=== PATIENT | female | born 1975 | race Caucasian/White ===

== ENCOUNTER 2018-06-30 16:17 | Inpatient (IN) | payer MEDICAID ==
[2018-06-30] MEDS ORDERED: Sodium Chloride 0.9% 10 ML Syringe FLUSH PRN (16:48)
[2018-06-30 17:32] LABS: ANION GAP 17.6
--- NOTE | 2018-06-30 17:39 | CR ---
Clinical history: 43-year-old female with cough and fever. Interpretation: Abnormal coarse accentuation of perihilar lung markings suggesting bronchial inflamma tion (some apparent old postinflammatory scarring and/or basilar associated with abnormality 2013). No lobar pneumonia. Normal cardiac silhouette without cephalization of vascular flow, signs of alveolar edema or dependen t pleural effusion. No lung mass or hilar lymphadenopathy. CONCLUSION: Bronchial inflammatory changes and/or mild vascular congestion. No lobar pneumonia.
[2018-06-30] MEDS ORDERED: Acetaminophen 325 MG Tab PO ONE (18:28)
--- NOTE | 2018-06-30 18:50 | EDM.PDOC ---
Scribed by Ju Martinez 06/30/18 1010 for Treva Murray NP ED HPI GENERAL MEDICAL PROBLEM - General Chief Complaint: Fever Stated Complaint: HIGH FEVER Time Seen by Provider: 06/30/18 17:07 Source of Information: Reports: Patient, RN, RN Notes Reviewed History Limitations: Reports: No Limitations - History of Present Illness INITIAL COMMENTS - FREE TEXT/NARRATIVE: Patient presents to ER with complaint of being tired with fever and chills. Patient complains of achy legs/thighs. Patient on hemodialysis Saturday, Saturday and Saturday. She ran today a full run. Not feeling well since yesterday. Patient states temperature 103.4 when off dialysis--was 99 when she got there. She has fever, chills, nausea, vomiting, diarrhea, headache and body aches. No cough, sore throat or urinary symptoms. She has chest pain and shortness of breath. She has a fistula. Onset: Gradual Duration: Getting Worse Location: Reports: Generalized Quality: Reports: Ache Severity: Moderate Improves with: Reports: None Worsens with: Reports: None Associated Symptoms: Reports: No Other Symptoms - Related Data Allergies Allergy/AdvReac Type Severity Reaction Status Date / Time codeine Allergy Hives Verified 06/30/18 16:56 Home Meds: Home Meds Bumetanide [Bumex] 2 mg PO ASDIRECTED 07/05/15 [History] Calcium Acetate [PhosLo] 667 mg PO ASDIRECTED 07/05/15 [History] Ferrous Sulfate [Iron] 325 mg PO ASDIRECTED 07/05/15 [History] Losartan Potassium [Cozaar] 100 mg PO ASDIRECTED 07/05/15 [History] Metoprolol Succinate [Toprol XL] 50 mg PO ASDIRECTED 07/05/15 [History] Sodium Bicarbonate 650 mg PO ASDIRECTED 07/05/15 [History] hydrALAZINE [Apresoline] 50 mg PO ASDIRECTED 07/05/15 [History] oxyCODONE HCl/Acetaminophen [Percocet 10-325 MG] 1 tab PO ASDIRECTED 07/05/15 [ History] Past Medical History Cardiovascular History: Reports: Hypertension Genitourinary History: Reports: Dialysis 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 ED EXAM, SEPSIS - Physical Exam Exam: See Below Exam Limited By: No Limitations General Appearance: Alert Eye Exam: Right Eye: Other (right eye cataract) Ears: Normal External Exam, Normal Canal, Hearing Grossly Normal, Normal TMs Nose: Normal Inspection, Normal Mucosa, No Blood Throat/Mouth: Normal Inspection, Normal Lips, Normal Teeth, Normal Gums, Normal Oropharynx, Normal Voice, No Airway Compromise Head: Atraumatic, Normocephalic Neck: Normal Inspection, Supple, Non-Tender, Full Range of Motion Respiratory/Chest: No Respiratory Distress, Lungs Clear, Normal Breath Sounds, No Accessory Muscle Use, Chest Non-Tender Cardiovascular: Normal Peripheral Pulses, Regular Rate, Rhythm, No Edema, No Gallop, No JVD, No Murmur, No Rub GI/Abdominal Exam: Normal Bowel Sounds, Soft, Non-Tender, No Organomegaly, No Distention, No Abnormal Bruit, No Mass, Pelvis Stable (Female) Exam: Deferred Rectal (Female) Exam: Deferred Back: Normal Inspection, Full Range of Motion, NT Extremities: Other (body aches) Neurological: Alert, Oriented, CN II-XII Intact, Normal Cognition, Normal Gait, Normal Reflexes, No Motor/Sensory Deficits Psychiatric: Normal Affect, Normal Mood Skin: Warm, Dry, Intact, Normal Color, No Rash Comments: Anterior cervical +2 and tender. Course - Vital Signs Last Recorded V/S: Last Vital Signs Temp 100.9 F H 06/30/18 16:30 Pulse 107 H 06/30/18 16:30 Resp 16 06/30/18 16:30 BP 164/72 H 06/30/18 16:30 Pulse Ox 91 L 06/30/18 16:30 - Orders/Labs/Meds Orders: Active Orders 24 hr Category Date Time Status Insert Urinary Catheter [OM.PC] Q24H Care 06/30/18 18:30 Ordered Peripheral IV Care [RC] . DIRECTED Care 06/30/18 16:49 Active Urinary Catheter Assessment [RC] ASDIRECTED Care 06/30/18 18:22 Active CULTURE BLOOD [BC] Stat Lab 06/30/18 17:00 Received CULTURE BLOOD [BC] Stat Lab 06/30/18 17:05 Received CULTURE STREP A CONFIRMATION [RM] Stat Lab 06/30/18 18:13 Results DRUG SCREEN URINE BIORAD [URCHEM] Stat Lab 06/30/18 18:08 Ordered INFLUENZA A+B AG SCREEN [RM] Stat Lab 06/30/18 18:08 Ordered STREP SCRN A RAPID W CULT CONF [RM] Stat Lab 06/30/18 18:13 Results UA W/MICROSCOPIC [URIN] Stat Lab 06/30/18 18:08 Ordered Sodium Chloride 0.9% [Saline Flush] Med 06/30/18 16:48 Active 10 ml FLUSH ASDIRECTED PRN Blood Culture x2 Reflex Set [OM.PC] Stat Oth 06/30/18 16:48 Ordered Peripheral IV Insertion Adult [OM.PC] Stat Oth 06/30/18 16:48 Ordered Medication Orders Sodium Chloride (Saline Flush) 10 ml FLUSH ASDIRECTED PRN PRN Reason: Keep Vein Open Labs: Laboratory Tests 06/30/18 06/30/18 06/30/18 Range/Units 17:00 17:00 17:00 WBC 16.9 H (5.0-10.0) 10^3/uL RBC 3.95 L (4.2-5.4) 10^6/uL Hgb 9.9 L D (12.0-16.0) g/dL Hct 33.2 L (37.0-47.0) % MCV 84.1 (80-100) fL MCH 25.1 L (27.0-34.0) pg MCHC 29.8 L (33.0-35.0) g/dL Plt Count 242 D (150-450) 10^3/uL Neut % (Auto) 91.9 H (42.2-75.2) % Lymph % (Auto) 3.0 L (20.5-50.1) % [place] % (Auto) 4.9 (2-8) % Eos % (Auto) 0.1 L (1.0-3.0) % Baso % (Auto) 0.1 (0.0-1.0) % Sodium 139 (135-145) mmol/L Potassium 3.6 (3.6-5.0) mmol/L Chloride 92 L D (101-111) mmol/L Carbon Dioxide 33.0 H D (21.0-31.0) mmol/L Anion Gap 17.6 BUN 14 (7-18) mg/dL Creatinine 3.5 H (0.6-1.3) mg/dL Est Cr Clr Drug Dosing 16.73 mL/min Estimated GFR (MDRD) 14 BUN/Creatinine Ratio 4.00 Glucose 104 (74-105) mg/dL Lactic Acid 1.2 (0.5-2.2) mmol/L Calcium 8.4 (8.4-10.2) mg/dl Total Bilirubin 1.7 H (0.2-1.0) mg/dL AST 17 (10-42) IU/L ALT 7 L (10-60) IU/L Alkaline Phosphatase 106 (42-121) IU/L Total Protein 8.4 H (6.7-8.2) g/dl Albumin 3.6 (3.2-5.5) g/dl Globulin 4.8 Albumin/Globulin Ratio 0.75 Urine Color (YELLOW) Urine Appearance (CLEAR) Urine pH (5.0-9.0) Ur Specific [place] (1.005-1.030) Urine Protein (NEGATIVE) Urine Glucose (UA) (NEGATIVE) Urine Ketones (NEGATIVE) Urine Occult Blood (NEGATIVE) Urine Nitrite (NEGATIVE) Urine Bilirubin (NEGATIVE) Urine Urobilinogen (0.2-1.0) mg/dL Ur Leukocyte Esterase (NEGATIVE) Urine RBC /HPF Urine WBC (0-5/HPF) /HPF Ur Epithelial Cells /HPF Amorphous Sediment (0/HPF) /HPF Urine Bacteria (0-FEW/HPF) /HPF Urine Mucus /LPF Urine Opiates Screen (NEGATIVE) Ur Oxycodone Screen (NEGATIVE) Urine Methadone Screen (NEGATIVE) Ur Barbiturates Screen (NEGATIVE) U Tricyclic Antidepress (NEGATIVE) Ur Phencyclidine Scrn (NEGATIVE) Ur Amphetamine Screen (NEGATIVE) U Methamphetamines Scrn (NEGATIVE) Urine MDMA Screen (NEGATIVE) U Benzodiazepines Scrn (NEGATIVE) Urine Cocaine Screen (NEGATIVE) U Marijuana (THC) Screen (NEGATIVE) 06/30/18 06/30/18 Range/Units 18:08 18:08 WBC (5.0-10.0) 10^3/uL RBC (4.2-5.4) 10^6/uL Hgb (12.0-16.0) g/dL Hct (37.0-47.0) % MCV (80-100) fL MCH (27.0-34.0) pg MCHC (33.0-35.0) g/dL Plt Count (150-450) 10^3/uL Neut % (Auto) (42.2-75.2) % Lymph % (Auto) (20.5-50.1) % [place] % (Auto) (2-8) % Eos % (Auto) (1.0-3.0) % Baso % (Auto) (0.0-1.0) % Sodium (135-145) mmol/L Potassium (3.6-5.0) mmol/L Chloride (101-111) mmol/L Carbon Dioxide (21.0-31.0) mmol/L Anion Gap BUN (7-18) mg/dL Creatinine (0.6-1.3) mg/dL Est Cr Clr Drug Dosing mL/min Estimated GFR (MDRD) BUN/Creatinine Ratio Glucose (74-105) mg/dL Lactic Acid (0.5-2.2) mmol/L Calcium (8.4-10.2) mg/dl Total Bilirubin (0.2-1.0) mg/dL AST (10-42) IU/L ALT (10-60) IU/L Alkaline Phosphatase (42-121) IU/L Total Protein (6.7-8.2) g/dl Albumin (3.2-5.5) g/dl Globulin Albumin/Globulin Ratio Urine Color Yellow (YELLOW) Urine Appearance Slightly cloudy (CLEAR) Urine pH >= 9.0 (5.0-9.0) Ur Specific [place] 1.015 (1.005-1.030) Urine Protein >=300 H (NEGATIVE) Urine Glucose (UA) 250 H (NEGATIVE) Urine Ketones 15 H (NEGATIVE) Urine Occult Blood Trace-intact H (NEGATIVE) Urine Nitrite Negative (NEGATIVE) Urine Bilirubin Small H (NEGATIVE) Urine Urobilinogen 0.2 (0.2-1.0) mg/dL Ur Leukocyte Esterase Negative (NEGATIVE) Urine RBC 5-10 H /HPF Urine WBC 0-5 (0-5/HPF) /HPF Ur Epithelial Cells Many H /HPF Amorphous Sediment Few (0/HPF) /HPF Urine Bacteria Few (0-FEW/HPF) /HPF Urine Mucus Rare /LPF Urine Opiates Screen Negative (NEGATIVE) Ur Oxycodone Screen Positive H (NEGATIVE) Urine Methadone Screen Negative (NEGATIVE) Ur Barbiturates Screen Negative (NEGATIVE) U Tricyclic Antidepress Negative (NEGATIVE) Ur Phencyclidine Scrn Negative (NEGATIVE) Ur Amphetamine Screen Negative (NEGATIVE) U Methamphetamines Scrn Negative (NEGATIVE) Urine MDMA Screen Negative (NEGATIVE) U Benzodiazepines Scrn Negative (NEGATIVE) Urine Cocaine Screen Negative (NEGATIVE) U Marijuana (THC) Screen Positive H (NEGATIVE) Rapid strep: Negative. Influenza A and B: Negative. Meds: Medications Generic Name Dose Route Start Last Admin Trade Name Freq PRN Reason Stop Dose Admin Sodium Chloride 10 ml 06/30/18 16:48 Saline Flush FLUSH ASDIRECTED PRN Keep Vein Open Discontinued Medications Generic Name Dose Route Start Last Admin Trade Name Freq PRN Reason Stop Dose Admin Acetaminophen 650 mg 06/30/18 18:28 06/30/18 18:35 Tylenol PO 06/30/18 18:29 650 mg NOW ONE Administration - Radiology Interpretation Free Text/Narrative:: Chestx-ray: Bronchial inflammatory changes and/or mild vascular congestion.No lobar pneumonia. See rad report. Departure - Departure Time of Disposition: 18:49 Disposition: Refer to Observation Condition: Fair Clinical Impression: Chronic kidney disease requiring chronic dialysis, Fever of unknown origin Elevated WBC count Qualifiers: Leukocytosis type: unspecified Qualified Code(s): D72.829 - Elevated white blood cell count, unspecified - Discharge Information *PRESCRIPTION DRUG MONITORING PROGRAM REVIEWED*: No *COPY OF PRESCRIPTION DRUG MONITORING REPORT IN PATIENT MARIBEL: No Forms: ED Department Discharge - My Orders Last 24 Hours: My Active Orders 06/30/18 16:48 Sodium Chloride 0.9% [Saline Flush] 10 ml FLUSH ASDIRECTED PRN Blood Culture x2 Reflex Set [OM.PC] Stat Peripheral IV Insertion Adult [OM.PC] Stat 06/30/18 16:49 Peripheral IV Care [RC] . DIRECTED 06/30/18 17:00 CULTURE BLOOD [BC] Stat 06/30/18 17:05 CULTURE BLOOD [BC] Stat 06/30/18 18:08 DRUG SCREEN URINE BIORAD [URCHEM] Stat INFLUENZA A+B AG SCREEN [RM] Stat UA W/MICROSCOPIC [URIN] Stat 08/20/18 18:13 CULTURE STREP A CONFIRMATION [RM] Stat STREP SCRN A RAPID W CULT CONF [RM] Stat 06/30/18 18:22 Urinary Catheter Assessment [RC] ASDIRECTED 06/30/18 18:30 Insert Urinary Catheter [OM.PC] Q24H - Assessment/Plan Last 24 Hours: My Active Orders 06/30/18 16:48 Sodium Chloride 0.9% [Saline Flush] 10 ml FLUSH ASDIRECTED PRN Blood Culture x2 Reflex Set [OM.PC] Stat Peripheral IV Insertion Adult [OM.PC] Stat 06/30/18 16:49 Peripheral IV Care [RC] . DIRECTED 06/30/18 17:00 CULTURE BLOOD [BC] Stat 06/30/18 17:05 CULTURE BLOOD [BC] Stat 06/30/18 18:08 DRUG SCREEN URINE BIORAD [URCHEM] Stat INFLUENZA A+B AG SCREEN [RM] Stat UA W/MICROSCOPIC [URIN] Stat 06/30/18 18:13 CULTURE STREP A CONFIRMATION [RM] Stat STREP SCRN A RAPID W CULT CONF [RM] Stat 06/30/18 18:22 Urinary Catheter Assessment [RC] ASDIRECTED 06/30/18 18:30 Insert Urinary Catheter [OM.PC] Q24H I have read and agree with the documentation that has been completed regarding this visit. By signing this record, I attest that the documentation was completed in my physical presence and is an accurate record of the encounter.
[2018-06-30] MEDS: Losartan 50 MG Tab PO SCH (20:57)
--- NOTE | 2018-06-30 21:41 | PCM.HP ---
H&P History of Present Illness - General Date of Service: 06/30/18 Admit Problem/Dx: Admission Diagnosis/Problem Admission Diagnosis/Problem Fever Source of Information: Patient History Limitations: Reports: No Limitations - History of Present Illness Initial Comments - Free Text/Narative: patient is a 43 year old female was admitted becuase of episodes of fever. Patient started to feel feverish and chilly since yesterday. she denies any cough, SOB nor chest pain. no sore throat, rhinorrhea nor nasal congestion. She had episodes of diarrhea two days ago and yesterday and stools were described as yellowish and "grainy" but of moderate amount, did not have bowel movement on the day of admission. No exposure to any similar contacts in the household. She had nausea yesterday. Patient took Tylenol last night. She had dialysis today in the afternoon and was noted to have fever and was advised to be seen in the local ER. Measuring Machine Operator was contacted and advised patient to be observed. Denies any rash, neck stiffness nor any skin infection. Has been having some headache, no blurred vision. right thigh and headache Pain Score (Numeric/FACES): 8 - Related Data Allergies/Adverse Reactions: Allergies Allergy/AdvReac Type Severity Reaction Status Date / Time codeine Allergy Hives Verified 06/30/18 19:34 Home Medications: Home Meds Calcium Acetate [PhosLo] 667 mg PO TIDMEALS 07/05/15 [History] Losartan Potassium [Cozaar] 100 mg PO BID 07/05/15 [History] Metoprolol Succinate [Toprol XL] 50 mg PO DAILY 07/05/15 [History] Sodium Bicarbonate 650 mg PO TIDMEALS 07/05/15 [History] hydrALAZINE [Apresoline] 50 mg PO DAILY 07/05/15 [History] oxyCODONE HCl/Acetaminophen [Percocet 10-325 MG] 5 mg PO Q4HR PRN 07/05/15 [ History] Past Medical History HEENT History: Reports: Hard of Hearing Other HEENT History: 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 Cardiovascular History: Reports: Hypertension Genitourinary History: Reports: Dialysis 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 (See Below) Other OB/BYN History: toxemia of - Infectious Disease History Infectious Disease History: Reports: Chicken Pox Social & Family History - Tobacco Use Smoking Status *Q: Current Every Day Smoker Years of Tobacco use: 3 Packs/Tins Daily: 0.5 Used Tobacco, but Quit: Yes Month/Year Tobacco Last Used: 1998 Second Hand Smoke Exposure: No - Caffeine Use Caffeine Use: Reports: None - Recreational Drug Use Recreational Drug Use: No - Living Situation & Occupation Living situation: Reports: with Family H&P Review of Systems - Review of Systems: Review Of Systems: See Below General: Reports: Fever, Chills Pulmonary: Reports: No Symptoms Cardiovascular: Reports: No Symptoms Gastrointestinal: Reports: Diarrhea (no recurrence of diarrhea today) Genitourinary: Reports: No Symptoms Musculoskeletal: Reports: No Symptoms Skin: Reports: No Symptoms Psychiatric: Reports: No Symptoms Neurological: Reports: No Symptoms Exam - Exam Exam: See Below - Vital Signs Vital Signs: Last Vital Signs Temp 100.5 F 06/30/18 19:29 Pulse 92 06/30/18 19:29 Resp 16 06/30/18 19:29 BP 123/45 L 06/30/18 20:57 Pulse Ox 94 L 06/30/18 19:29 Weight: 141 lb - Exam General: Alert, Oriented HEENT: Conjunctiva Clear Neck: Supple Lungs: Clear to Auscultation, Normal Respiratory Effort Cardiovascular: Regular Rate, Regular Rhythm GI/Abdominal Exam: Normal Bowel Sounds, Soft, Other (abdomen not tense; mild epigastric tenderness, no rebound tenderness) Back Exam: Normal Inspection Extremities: No Pedal Edema Skin: Other (signs of excoriations on both LE) Neurological: Cranial Nerves Intact Neuro Extensive - Motor, Sensory, Reflexes: Normal Gait - Patient Data Lab Results Last 24 hrs: Laboratory Results - last 24 hr 06/30/18 06/30/18 06/30/18 Range/Units 17:00 17:00 17:00 WBC 16.9 H (5.0-10.0) 10^3/uL RBC 3.95 L (4.2-5.4) 10^6/uL Hgb 9.9 L D (12.0-16.0) g/dL Hct 33.2 L (37.0-47.0) % MCV 84.1 (80-100) fL MCH 25.1 L (27.0-34.0) pg MCHC 29.8 L (33.0-35.0) g/dL Plt Count 242 D (150-450) 10^3/uL Neut % (Auto) 91.9 H (42.2-75.2) % Lymph % (Auto) 3.0 L (20.5-50.1) % [place] % (Auto) 4.9 (2-8) % Eos % (Auto) 0.1 L (1.0-3.0) % Baso % (Auto) 0.1 (0.0-1.0) % Sodium 139 (135-145) mmol/L Potassium 3.6 (3.6-5.0) mmol/L Chloride 92 L D (101-111) mmol/L Carbon Dioxide 33.0 H D (21.0-31.0) mmol/L Anion Gap 17.6 BUN 14 (7-18) mg/dL Creatinine 3.5 H (0.6-1.3) mg/dL Est Cr Clr Drug Dosing 16.73 mL/min Estimated GFR (MDRD) 14 BUN/Creatinine Ratio 4.00 Glucose 104 (74-105) mg/dL Lactic Acid 1.2 (0.5-2.2) mmol/L Calcium 8.4 (8.4-10.2) mg/dl Total Bilirubin 1.7 H (0.2-1.0) mg/dL AST 17 (10-42) IU/L ALT 7 L (10-60) IU/L Alkaline Phosphatase 106 (42-121) IU/L Total Protein 8.4 H (6.7-8.2) g/dl Albumin 3.6 (3.2-5.5) g/dl Globulin 4.8 Albumin/Globulin Ratio 0.75 Urine Color (YELLOW) Urine Appearance (CLEAR) Urine pH (5.0-9.0) Ur Specific [place] (1.005-1.030) Urine Protein (NEGATIVE) Urine Glucose (UA) (NEGATIVE) Urine Ketones (NEGATIVE) Urine Occult Blood (NEGATIVE) Urine Nitrite (NEGATIVE) Urine Bilirubin (NEGATIVE) Urine Urobilinogen (0.2-1.0) mg/dL Ur Leukocyte Esterase (NEGATIVE) Urine RBC /HPF Urine WBC (0-5/HPF) /HPF Ur Epithelial Cells /HPF Amorphous Sediment (0/HPF) /HPF Urine Bacteria (0-FEW/HPF) /HPF Urine Mucus /LPF Urine Opiates Screen (NEGATIVE) Ur Oxycodone Screen (NEGATIVE) Urine Methadone Screen (NEGATIVE) Ur Barbiturates Screen (NEGATIVE) U Tricyclic Antidepress (NEGATIVE) Ur Phencyclidine Scrn (NEGATIVE) Ur Amphetamine Screen (NEGATIVE) U Methamphetamines Scrn (NEGATIVE) Urine MDMA Screen (NEGATIVE) U Benzodiazepines Scrn (NEGATIVE) Urine Cocaine Screen (NEGATIVE) U Marijuana (THC) Screen (NEGATIVE) 06/30/18 06/30/18 Range/Units 18:08 18:08 WBC (5.0-10.0) 10^3/uL RBC (4.2-5.4) 10^6/uL Hgb (12.0-16.0) g/dL Hct (37.0-47.0) % MCV (80-100) fL MCH (27.0-34.0) pg MCHC (33.0-35.0) g/dL Plt Count (150-450) 10^3/uL Neut % (Auto) (42.2-75.2) % Lymph % (Auto) (20.5-50.1) % [place] % (Auto) (2-8) % Eos % (Auto) (1.0-3.0) % Baso % (Auto) (0.0-1.0) % Sodium (135-145) mmol/L Potassium (3.6-5.0) mmol/L Chloride (101-111) mmol/L Carbon Dioxide (21.0-31.0) mmol/L Anion Gap BUN (7-18) mg/dL Creatinine (0.6-1.3) mg/dL Est Cr Clr Drug Dosing mL/min Estimated GFR (MDRD) BUN/Creatinine Ratio Glucose (74-105) mg/dL Lactic Acid (0.5-2.2) mmol/L Calcium (8.4-10.2) mg/dl Total Bilirubin (0.2-1.0) mg/dL AST (10-42) IU/L ALT (10-60) IU/L Alkaline Phosphatase (42-121) IU/L Total Protein (6.7-8.2) g/dl Albumin (3.2-5.5) g/dl Globulin Albumin/Globulin Ratio Urine Color Yellow (YELLOW) Urine Appearance Slightly cloudy (CLEAR) Urine pH >= 9.0 (5.0-9.0) Ur Specific [place] 1.015 (1.005-1.030) Urine Protein >=300 H (NEGATIVE) Urine Glucose (UA) 250 H (NEGATIVE) Urine Ketones 15 H (NEGATIVE) Urine Occult Blood Trace-intact H (NEGATIVE) Urine Nitrite Negative (NEGATIVE) Urine Bilirubin Small H (NEGATIVE) Urine Urobilinogen 0.2 (0.2-1.0) mg/dL Ur Leukocyte Esterase Negative (NEGATIVE) Urine RBC 5-10 H /HPF Urine WBC 0-5 (0-5/HPF) /HPF Ur Epithelial Cells Many H /HPF Amorphous Sediment Few (0/HPF) /HPF Urine Bacteria Few (0-FEW/HPF) /HPF Urine Mucus Rare /LPF Urine Opiates Screen Negative (NEGATIVE) Ur Oxycodone Screen Positive H (NEGATIVE) Urine Methadone Screen Negative (NEGATIVE) Ur Barbiturates Screen Negative (NEGATIVE) U Tricyclic Antidepress Negative (NEGATIVE) Ur Phencyclidine Scrn Negative (NEGATIVE) Ur Amphetamine Screen Negative (NEGATIVE) U Methamphetamines Scrn Negative (NEGATIVE) Urine MDMA Screen Negative (NEGATIVE) U Benzodiazepines Scrn Negative (NEGATIVE) Urine Cocaine Screen Negative (NEGATIVE) U Marijuana (THC) Screen Positive H (NEGATIVE) Result Diagrams: 07/01/18 06:29 07/01/18 06:29 Hemal Results Last 24 hrs: Microbiology 06/30/18 18:08 Influenza Type A Antigen Screen - Final Nasal, Unspecified NEGATIVE INFLUENZA A VIRUS AG Influenza Type B Antigen Screen - Final NEGATIVE INFLUENZA B VIRUS AG 06/30/18 18:13 Group A Streptococcus Rapid Screen - Final Throat NEGATIVE STREP A SCREEN Problem List Initiated/Reviewed/Updated: Yes Orders Last 24hrs: Active Orders 24 hr Category Date Time Status Patient Status [ADT] Routine ADT 06/30/18 20:38 Active Height and Weight [RC] DAILY Care 06/30/18 20:38 Active Insert Urinary Catheter [OM.PC] Q24H Care 06/30/18 18:30 Ordered Oxygen Therapy [RC] PRN Care 06/30/18 20:38 Active Peripheral IV Care [RC] . DIRECTED Care 06/30/18 16:49 Active Up With Assistance [RC] ASDIRECTED Care 06/30/18 20:38 Active Urinary Catheter Assessment [RC] ASDIRECTED Care 06/30/18 18:22 Active VTE/DVT Education [RC] PER UNIT ROUTINE Care 06/30/18 20:38 Active Vital Signs [RC] Q4H Care 06/30/18 20:38 Active 2 Gram Sodium Diet [DIET] Diet 06/30/18 Breakfast Active CBC WITH AUTO DIFF [HEME] Routine Lab 07/01/18 06:00 Ordered CULTURE BLOOD [BC] Stat Lab 06/30/18 17:00 Received CULTURE BLOOD [BC] Stat Lab 06/30/18 17:05 Received CULTURE STREP A CONFIRMATION [RM] Stat Lab 06/30/18 18:13 Results DRUG SCREEN URINE BIORAD [URCHEM] Stat Lab 06/30/18 18:08 Ordered INFLUENZA A+B AG SCREEN [] Stat Lab 06/30/18 18:08 Ordered STREP SCRN A RAPID W CULT CONF [] Stat Lab 06/30/18 18:13 Results UA W/MICROSCOPIC [URIN] Stat Lab 06/30/18 18:08 Ordered Acetaminophen [Tylenol] Med 06/30/18 20:43 Active 650 mg PO Q6H PRN Calcium Acetate [PhosLo] Med 07/01/18 08:00 Pending 667 mg PO TIDMEALS Losartan [Cozaar] Med 06/30/18 21:00 Active 100 mg PO BID Metoprolol Succinate [Toprol XL] Med 07/01/18 09:00 Active 50 mg PO DAILY Sodium Bicarbonate Med 07/01/18 08:00 Active 650 mg PO TIDMEALS Sodium Chloride 0.9% [Saline Flush] Med 06/30/18 16:48 Active 10 ml FLUSH ASDIRECTED PRN hydrALAZINE [Apresoline] Med 07/01/18 09:00 Active 50 mg PO DAILY Blood Culture x2 Reflex Set [OM.PC] Stat Oth 06/30/18 16:48 Ordered Peripheral IV Insertion Adult [OM.PC] Stat Oth 06/30/18 16:48 Ordered Resuscitation Status Routine Resus Stat 06/30/18 20:38 Ordered Medication Orders Acetaminophen (Tylenol) 650 mg PO Q6H PRN PRN Reason: Fever Hydralazine HCl (Apresoline) 50 mg PO DAILY ENIO Losartan Potassium (Cozaar) 100 mg PO BID ENIO Last Admin: 06/30/18 20:57 Dose: 100 mg Metoprolol Succinate (Toprol Xl) 50 mg PO DAILY [facility] Non-Formulary Medication (Calcium Acetate [Phoslo]) 667 mg PO TIDMEALS ENIO Sodium Bicarbonate (Sodium Bicarbonate) 650 mg PO TIDMEALS ENIO Sodium Chloride (Saline Flush) 10 ml FLUSH ASDIRECTED PRN PRN Reason: Keep Vein Open Last Admin: 06/30/18 19:00 Dose: 10 ml Assessment/Plan Comment:: fever - urinalysis no signs of infection, nor does the chest xray. - we will consider doing an imaging of chest, abdomen and pelvis if continues to spike fever. - will do Tylenol every 6 hours prn for fever - limited with hydrating patient due to renal status leukocytosis. - blood cultures were drawn, await results - repeat CBC Anemia - hemoglobin stable compared to previous Hgb. 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
[2018-07-01] MEDS: Acetaminophen 325 MG Tab PO PRN ×2 (00:13→11:25)
[2018-07-01] MEDS ORDERED: Cefepime 2 GM in Sodium Chloride 0.9% 50 ML IV ONE (08:00)
[2018-07-01] MEDS ORDERED: CALCIUM ACETATE 667 MG PO SCH (08:00)
[2018-07-01] MEDS: Sodium Bicarbonate 650 MG Tab PO SCH ×2 (08:50→11:25)
[2018-07-01] MEDS: Losartan 50 MG Tab PO SCH (08:50)
[2018-07-01] MEDS ORDERED: Metoprolol Succinate 50 MG Tab.ER PO SCH (09:00)
[2018-07-01] MEDS ORDERED: hydrALAZINE 25 MG Tab PO SCH (09:00)
--- NOTE | 2018-07-01 09:28 | CT ---
Clinical history: A 43-year-old hypertensive 141 pound female hemodialysis patient with heart disease , recent episodes vomiting/diarrhea, a fever of unknown origin (101.5) and WBC 16,900. Scan technique: Volume acquisition of data from the chest, abdomen and pelvis obtained without oral o r IV contrast while patient was lying supine on the Siemens multi slice scanner [place], [place]. All data archived in the PACS system for storage, reformatting axial/sagi ttal/coronal planes and study. Interpretation: Abnormal. 1. Large volume of ascitic fluid throughout the peritoneum could reflect "dialysis" but no sign of pe ritoneal catheter. Clinical? 2. Patchy nonconsolidated lingular (CARLI) infiltrate/atelectasis left lung. No other signs of pneumoni tis, lung mass or adenopathy. 3. Borderline cardiomegaly without alveolar edema or dependent pleural effusion. 4. Diseased gallbladder i.e. multiple intraluminal calcifications (stones) and the gallbladder wall a ppears thickened or inflamed. No abnormal dilatation of the intra or extrahepatic biliary ducts. No i ntrahepatic mass lesion. Unenhanced pancreas unremarkable. 5. *Midline ventral wall (infraumbilical) defect with herniation peritoneal fat and possibly tiny "kn uckle" of small bowel.... small bowel dilatation and although no differential air-fluid levels cannot exclude early mechanical obstruction. Clinical? 6. atheromatous calcifications normal caliber aortoiliac vessels. Hypertrophic spondylosis otherwise negative thoracolumbar spine. 7. No lung mass or mediastinal lymphadenopathy. No abdominal or pelvic mass lesion or mesenteric/retr operitoneal lymph nodes. 8. Ovarian cysts. Midline uterus unremarkable. CONCLUSION: Small umbilical hernia with incarceration small bowel loop (see above). Ascites. Diseased gallbladder. Infiltrate.
[2018-07-01] MEDS ORDERED: Cefepime 2 GM in Sodium Chloride 0.9% 100 ML IV ONE (10:15)
[2018-07-01 10:40] LABS: ANION GAP 19.9
--- NOTE | 2018-07-01 12:14 | PCM.PN ---
- General Info Date of Service: 07/01/18 Subjective Update: 43-year-old female admitted last night for observation because of episodes of fever. Patient has tolerated her sandwich and her meals with no recurrence of the nausea and vomiting and no recurrence of diarrhea. Again, denies any cough or shortness of breath. Denies any abdominal pain. Has been ambulating well. Was able to get some sleep last night. Functional Status: Reports: Pain Controlled - Review of Systems General: Reports: Fever - Patient Data Vitals - Most Recent: Last Vital Signs Temp 97.7 F 07/01/18 11:21 Pulse 77 07/01/18 11:21 Resp 20 07/01/18 11:21 BP 102/33 L 07/01/18 11:21 Pulse Ox 95 07/01/18 11:21 Weight - Most Recent: 141 lb I&O - Last 24 Hours: Intake & Output 06/30/18 07/01/18 07/01/18 22:59 06:59 14:59 Intake Total 625 93 Output Total 25 Balance 600 93 Lab Results Last 24 Hours: Laboratory Results - last 24 hr 06/30/18 06/30/18 06/30/18 Range/Units 17:00 17:00 17:00 WBC 16.9 H (5.0-10.0) 10^3/uL RBC 3.95 L (4.2-5.4) 10^6/uL Hgb 9.9 L D (12.0-16.0) g/dL Hct 33.2 L (37.0-47.0) % MCV 84.1 (80-100) fL MCH 25.1 L (27.0-34.0) pg MCHC 29.8 L (33.0-35.0) g/dL Plt Count 242 D (150-450) 10^3/uL Neut % (Auto) 91.9 H (42.2-75.2) % Lymph % (Auto) 3.0 L (20.5-50.1) % [place] % (Auto) 4.9 (2-8) % Eos % (Auto) 0.1 L (1.0-3.0) % Baso % (Auto) 0.1 (0.0-1.0) % Sodium 139 (135-145) mmol/L Potassium 3.6 (3.6-5.0) mmol/L Chloride 92 L D (101-111) mmol/L Carbon Dioxide 33.0 H D (21.0-31.0) mmol/L Anion Gap 17.6 BUN 14 (7-18) mg/dL Creatinine 3.5 H (0.6-1.3) mg/dL Est Cr Clr Drug Dosing 16.73 mL/min Estimated GFR (MDRD) 14 BUN/Creatinine Ratio 4.00 Glucose 104 (74-105) mg/dL Lactic Acid 1.2 (0.5-2.2) mmol/L Calcium 8.4 (8.4-10.2) mg/dl Total Bilirubin 1.7 H (0.2-1.0) mg/dL AST 17 (10-42) IU/L ALT 7 L (10-60) IU/L Alkaline Phosphatase 106 (42-121) IU/L Total Protein 8.4 H (6.7-8.2) g/dl Albumin 3.6 (3.2-5.5) g/dl Globulin 4.8 Albumin/Globulin Ratio 0.75 Urine Color (YELLOW) Urine Appearance (CLEAR) Urine pH (5.0-9.0) Ur Specific [place] (1.005-1.030) Urine Protein (NEGATIVE) Urine Glucose (UA) (NEGATIVE) Urine Ketones (NEGATIVE) Urine Occult Blood (NEGATIVE) Urine Nitrite (NEGATIVE) Urine Bilirubin (NEGATIVE) Urine Urobilinogen (0.2-1.0) mg/dL Ur Leukocyte Esterase (NEGATIVE) Urine RBC /HPF Urine WBC (0-5/HPF) /HPF Ur Epithelial Cells /HPF Amorphous Sediment (0/HPF) /HPF Urine Bacteria (0-FEW/HPF) /HPF Urine Mucus /LPF Urine Opiates Screen (NEGATIVE) Ur Oxycodone Screen (NEGATIVE) Urine Methadone Screen (NEGATIVE) Ur Barbiturates Screen (NEGATIVE) U Tricyclic Antidepress (NEGATIVE) Ur Phencyclidine Scrn (NEGATIVE) Ur Amphetamine Screen (NEGATIVE) U Methamphetamines Scrn (NEGATIVE) Urine MDMA Screen (NEGATIVE) U Benzodiazepines Scrn (NEGATIVE) Urine Cocaine Screen (NEGATIVE) U Marijuana (THC) Screen (NEGATIVE) 06/30/18 06/30/18 07/01/18 Range/Units 18:08 18:08 06:29 WBC 15.4 H (5.0-10.0) 10^3/uL RBC 3.70 L (4.2-5.4) 10^6/uL Hgb 9.3 L (12.0-16.0) g/dL Hct 31.3 L (37.0-47.0) % MCV 84.6 (80-100) fL MCH 25.1 L (27.0-34.0) pg MCHC 29.7 L (33.0-35.0) g/dL Plt Count 192 (150-450) 10^3/uL Neut % (Auto) 89.3 H (42.2-75.2) % Lymph % (Auto) 5.1 L (20.5-50.1) % [place] % (Auto) 5.3 (2-8) % Eos % (Auto) 0.0 L (1.0-3.0) % Baso % (Auto) 0.3 (0.0-1.0) % Sodium (135-145) mmol/L Potassium (3.6-5.0) mmol/L Chloride (101-111) mmol/L Carbon Dioxide (21.0-31.0) mmol/L Anion Gap BUN (7-18) mg/dL Creatinine (0.6-1.3) mg/dL Est Cr Clr Drug Dosing mL/min Estimated GFR (MDRD) BUN/Creatinine Ratio Glucose (74-105) mg/dL Lactic Acid (0.5-2.2) mmol/L Calcium (8.4-10.2) mg/dl Total Bilirubin (0.2-1.0) mg/dL AST (10-42) IU/L ALT (10-60) IU/L Alkaline Phosphatase (42-121) IU/L Total Protein (6.7-8.2) g/dl Albumin (3.2-5.5) g/dl Globulin Albumin/Globulin Ratio Urine Color Yellow (YELLOW) Urine Appearance Slightly cloudy (CLEAR) Urine pH >= 9.0 (5.0-9.0) Ur Specific [place] 1.015 (1.005-1.030) Urine Protein >=300 H (NEGATIVE) Urine Glucose (UA) 250 H (NEGATIVE) Urine Ketones 15 H (NEGATIVE) Urine Occult Blood Trace-intact H (NEGATIVE) Urine Nitrite Negative (NEGATIVE) Urine Bilirubin Small H (NEGATIVE) Urine Urobilinogen 0.2 (0.2-1.0) mg/dL Ur Leukocyte Esterase Negative (NEGATIVE) Urine RBC 5-10 H /HPF Urine WBC 0-5 (0-5/HPF) /HPF Ur Epithelial Cells Many H /HPF Amorphous Sediment Few (0/HPF) /HPF Urine Bacteria Few (0-FEW/HPF) /HPF Urine Mucus Rare /LPF Urine Opiates Screen Negative (NEGATIVE) Ur Oxycodone Screen Positive H (NEGATIVE) Urine Methadone Screen Negative (NEGATIVE) Ur Barbiturates Screen Negative (NEGATIVE) U Tricyclic Antidepress Negative (NEGATIVE) Ur Phencyclidine Scrn Negative (NEGATIVE) Ur Amphetamine Screen Negative (NEGATIVE) U Methamphetamines Scrn Negative (NEGATIVE) Urine MDMA Screen Negative (NEGATIVE) U Benzodiazepines Scrn Negative (NEGATIVE) Urine Cocaine Screen Negative (NEGATIVE) U Marijuana (THC) Screen Positive H (NEGATIVE) 07/01/18 Range/Units 06:29 WBC (5.0-10.0) 10^3/uL RBC (4.2-5.4) 10^6/uL Hgb (12.0-16.0) g/dL Hct (37.0-47.0) % MCV (80-100) fL MCH (27.0-34.0) pg MCHC (33.0-35.0) g/dL Plt Count (150-450) 10^3/uL Neut % (Auto) (42.2-75.2) % Lymph % (Auto) (20.5-50.1) % [place] % (Auto) (2-8) % Eos % (Auto) (1.0-3.0) % Baso % (Auto) (0.0-1.0) % Sodium 129 L D (135-145) mmol/L Potassium 3.9 (3.6-5.0) mmol/L Chloride 85 L (101-111) mmol/L Carbon Dioxide 28.0 (21.0-31.0) mmol/L Anion Gap 19.9 BUN 24 H (7-18) mg/dL Creatinine 5.3 H D (0.6-1.3) mg/dL Est Cr Clr Drug Dosing 11.05 mL/min Estimated GFR (MDRD) 9 BUN/Creatinine Ratio Glucose 85 (74-105) mg/dL Lactic Acid (0.5-2.2) mmol/L Calcium 8.0 L (8.4-10.2) mg/dl Total Bilirubin (0.2-1.0) mg/dL AST (10-42) IU/L ALT (10-60) IU/L Alkaline Phosphatase (42-121) IU/L Total Protein (6.7-8.2) g/dl Albumin (3.2-5.5) g/dl Globulin Albumin/Globulin Ratio Urine Color (YELLOW) Urine Appearance (CLEAR) Urine pH (5.0-9.0) Ur Specific [place] (1.005-1.030) Urine Protein (NEGATIVE) Urine Glucose (UA) (NEGATIVE) Urine Ketones (NEGATIVE) Urine Occult Blood (NEGATIVE) Urine Nitrite (NEGATIVE) Urine Bilirubin (NEGATIVE) Urine Urobilinogen (0.2-1.0) mg/dL Ur Leukocyte Esterase (NEGATIVE) Urine RBC /HPF Urine WBC (0-5/HPF) /HPF Ur Epithelial Cells /HPF Amorphous Sediment (0/HPF) /HPF Urine Bacteria (0-FEW/HPF) /HPF Urine Mucus /LPF Urine Opiates Screen (NEGATIVE) Ur Oxycodone Screen (NEGATIVE) Urine Methadone Screen (NEGATIVE) Ur Barbiturates Screen (NEGATIVE) U Tricyclic Antidepress (NEGATIVE) Ur Phencyclidine Scrn (NEGATIVE) Ur Amphetamine Screen (NEGATIVE) U Methamphetamines Scrn (NEGATIVE) Urine MDMA Screen (NEGATIVE) U Benzodiazepines Scrn (NEGATIVE) Urine Cocaine Screen (NEGATIVE) U Marijuana (THC) Screen (NEGATIVE) Hemal Results Last 24 Hours: Microbiology 06/30/18 17:05 Aerobic Blood Culture - Preliminary Blood - Venous - Lab Draw 06/30/18 18:13 Quick Strep Confirmation Culture - Final Throat NO GROUP A STREP ISOLATED Group A Streptococcus Rapid Screen - Final NEGATIVE STREP A SCREEN 06/30/18 17:00 Aerobic Blood Culture - Preliminary Blood - Venous Anaerobic Blood Culture - Preliminary 06/30/18 18:08 Influenza Type A Antigen Screen - Final Nasal, Unspecified NEGATIVE INFLUENZA A VIRUS AG Influenza Type B Antigen Screen - Final NEGATIVE INFLUENZA B VIRUS AG Med Orders - Current: Current Medications Acetaminophen (Tylenol) 650 mg PO Q6H PRN PRN Reason: Fever Last Admin: 07/01/18 11:25 Dose: 650 mg Hydralazine HCl (Apresoline) 50 mg PO DAILY ENIO Last Admin: 07/01/18 08:49 Dose: 50 mg Losartan Potassium (Cozaar) 100 mg PO BID [facility] Last Admin: 07/01/18 08:50 Dose: 100 mg Metoprolol Succinate (Toprol Xl) 50 mg PO DAILY [facility] Last Admin: 07/01/18 08:50 Dose: 50 mg Non-Formulary Medication (Calcium Acetate [Phoslo]) 667 mg PO TIDMEALS [facility] Sodium Bicarbonate (Sodium Bicarbonate) 650 mg PO TIDMEALS [facility] Last Admin: 07/01/18 11:25 Dose: 650 mg Sodium Chloride (Saline Flush) 10 ml FLUSH ASDIRECTED PRN PRN Reason: Keep Vein Open Last Admin: 06/30/18 19:00 Dose: 10 ml Discontinued Medications Acetaminophen (Tylenol) 650 mg PO NOW ONE Stop: 06/30/18 18:29 Last Admin: 06/30/18 18:35 Dose: 650 mg Cefepime HCl 2 gm/ Sodium (Chloride) 100 mls @ 200 mls/hr IV ONETIME ONE Stop: 07/01/18 10:44 Last Admin: 07/01/18 10:20 Dose: 200 mls/hr - Problem List & Annotations (1) Bacteremia SNOMED Code(s): 5687603 Code(s): R78.81 - BACTEREMIA Status: Acute Current Visit: Yes (2) Elevated WBC count SNOMED Code(s): 848356812, 915620317 Code(s): D72.829 - ELEVATED WHITE BLOOD CELL COUNT, UNSPECIFIED Status: Acute Current Visit: No Qualifiers: Leukocytosis type: unspecified Qualified Code(s): D72.829 - Elevated white blood cell count, unspecified - Problem List Review Problem List Initiated/Reviewed/Updated: Yes - My Orders Last 24 Hours: My Active Orders 06/30/18 18:08 CULTURE URINE [RM] Routine 06/30/18 20:38 Patient Status [ADT] Routine Height and Weight [RC] DAILY Oxygen Therapy [RC] PRN Up With Assistance [RC] ASDIRECTED VTE/DVT Education [RC] PER UNIT ROUTINE Vital Signs [RC] Q4H Resuscitation Status Routine 06/30/18 20:43 Acetaminophen [Tylenol] 650 mg PO Q6H PRN 06/30/18 21:00 Losartan [Cozaar] 100 mg PO BID 07/01/18 08:00 Calcium Acetate [PhosLo] 667 mg PO TIDMEALS Sodium Bicarbonate 650 mg PO TIDMEALS 07/01/18 09:00 Metoprolol Succinate [Toprol XL] 50 mg PO DAILY hydrALAZINE [Apresoline] 50 mg PO DAILY 07/01/18 10:15 Admission Status [Patient Status] [ADT] Routine - Plan Plan:: 43-year-old female admitted because of episodes of fever and leukocytosis. Initial workup did not show any clear source of infection. CAT scan of the chest , abdomen, and pelvis showed multiple findings. This includes infiltrates in the lingula, massive ascites, disease gallbladder, questionable umbilical hernia. Eventually blood cultures grew out positive cocci in chains. She was given IV Cefipime 2 g. Given the need to continue hemodialysis and possible need for paracentesis (possible source of infection), needs to be transferred to higher level facility. Sign out was given to Dr. Oliver who accepted the patient. We will be transported by ambulance due to the fact that this is a septic patient. Plan was informed to the patient who is agreeable. Code status: full
[2018-07-01 12:15] VITALS: BP 108/49
== END 2018-07-01 12:45 | DRG 871 ==
LOC: DL.ED 16:17 → DL.MS 19:27 → UNDOADMOB 19:27 → DL.MS 20:38 → OBSVTOIN 07-01 10:15
PROVIDERS: ADMIT Internal Medicine; ATTEND Internal Medicine
DX: R50.9 Fever, unspecified (principal); N18.9 Chronic kidney disease, unspecified; A41.9 Sepsis, unspecified organism; D72.829 Elevated white blood cell count, unspecified; I12.9 Hypertensive chronic kidney disease with stage 1 through stage 4 chronic kidney disease, or unspecified chronic kidney disease; R07.9 Chest pain, unspecified; R06.02 Shortness of breath; N18.6 End stage renal disease; I12.0 Hypertensive chronic kidney disease with stage 5 chronic kidney disease or end stage renal disease; R18.8 Other ascites; K42.9 Umbilical hernia without obstruction or gangrene; K82.9 Disease of gallbladder, unspecified; D64.9 Anemia, unspecified; Z99.2 Dependence on renal dialysis; Z79.899 Other long term (current) drug therapy; Z88.8 Allergy status to other drugs, medicaments and biological substances
CPT/HCPCS: 36415 ×2; 71046; 71250; 74176; 80048; 80053; 80305; 81001; 83605; 85025 ×2; 87040 ×2; 87081; 87086; 87430; 87804 ×2; 99284; A9270 ×7; J7050; G0378; J0692

== ENCOUNTER 2019-01-21 10:34 | Emergency (ER) | payer MEDICAID, OTHER ==
[2019-01-21 11:15] VITALS: BP 183/65
--- NOTE | 2019-01-21 11:16 | EDM.PDOC ---
ED HPI GENERAL MEDICAL PROBLEM - General Chief Complaint: General Stated Complaint: DIALYSIS PATIENT THAT NEEDS TO BE SEEN Time Seen by Provider: 01/21/19 11:02 Source of Information: Reports: Patient History Limitations: Reports: No Limitations - History of Present Illness INITIAL COMMENTS - FREE TEXT/NARRATIVE: She comes emergency department today with concerns of not making her dialysis. The patient for the past 2 weeks has missed her dialysis for many different reasons to include one day she had a sore knee another day she couldn't find anyone to watch her grandkids. She tried to go to dialysis yesterday but they would not let her, she has not been evaluated for over 2 weeks. She comes emergency Department she doesn't know what else to do. Speaking with the dialysis people in [place] she was supposed to be up there yesterday to get back on track with dialysis but she did not show up. She is in the emergency department today without any complaints other than knowing that she needs dialysis. No fever no chills. No shortness of breath no cough or congestion. No weakness dizziness lightheadedness. No abdominal pain nausea vomiting. No hematuria dysuria or urinary frequency. No syncope. NO chest pain. - Related Data Allergies Allergy/AdvReac Type Severity Reaction Status Date / Time codeine Allergy Hives Verified 01/21/19 11:15 Home Meds: Home Meds Calcium Acetate [PhosLo] 4 cap PO ASDIRECTED 07/05/15 [History] Losartan Potassium [Cozaar] 100 mg PO DAILY 07/05/15 [History] Metoprolol Succinate [Toprol XL] 50 mg PO BID 07/05/15 [History] Acetaminophen [Tylenol] 650 mg PO ASDIRECTED PRN 08/29/18 [History] Bumetanide 1 mg PO DAILY 08/29/18 [History] Latanoprost/Pf [Latanoprost 0.005% Eye Drop] 1 drop EYEBOTH DAILY 08/29/18 [ History] Albuterol Sulfate [Proair Respiclick] 2 INH Q6H PRN 10/24/18 [History] Benzonatate [Tessalon Perle] 100 mg PO Q6H PRN 10/24/18 [History] Diclofenac Sodium [Voltaren 1% Gel] 100 gm TD TID 10/24/18 [History] Ondansetron [Zofran] 4 mg PO DAILY PRN 12/14/18 [History] predniSONE [Prednisone] 10 mg PO DAILY 10/24/18 [History] Past Medical History HEENT History: Reports: Cataract, Hard of Hearing Other HEENT History: 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 Cardiovascular History: Reports: Heart Failure, Hypertension Genitourinary History: Reports: Dialysis, Other (See Below) Other Genitourinary History: 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 ED EXAM, GENERAL - Physical Exam Exam: See Below Exam Limited By: No Limitations General Appearance: Alert, WD/WN, No Apparent Distress Eye Exam: Bilateral Eye: EOMI, Normal Inspection Ears: Normal External Exam Nose: Normal Inspection Throat/Mouth: Normal Inspection, Normal Oropharynx Head: Atraumatic, Normocephalic Neck: Normal Inspection, Supple, Non-Tender Respiratory/Chest: No Respiratory Distress, Lungs Clear, Normal Breath Sounds, No Accessory Muscle Use Cardiovascular: Normal Peripheral Pulses, Regular Rate, Rhythm Peripheral Pulses: 2+: Radial (L), Radial (R), Posterior Tibial (L), Posterior Tibial (R), Dorsalis Pedis (L), Dorsalis Pedis (R) GI/Abdominal: Normal Bowel Sounds, Soft, Non-Tender Back Exam: Normal Inspection Extremities: Normal Inspection, Non-Tender, Pedal Edema (scant equal bilaterally. ) Neurological: Alert, Oriented, Normal Cognition, No Motor/Sensory Deficits Psychiatric: Normal Affect, Normal Mood Skin Exam: Warm, Dry, Intact, Normal Color, No Rash EKG INTERPRETATION EKG Date: 01/21/19 Time: 11:25 Rhythm: NSR Rate (Beats/Min): 72 Chicken: Normal P-Wave: Present QRS: Normal ST-T: Normal QT: Normal Comparison: Change From Previous EKG (minimal widening of the QRS but still normal measurement. Otherwise unchanged.) Course - Vital Signs Last Recorded V/S: Last Vital Signs Temp 35.9 C 01/21/19 10:40 Pulse 70 01/21/19 10:40 Resp 18 01/21/19 10:40 BP 183/65 H 01/21/19 10:40 Pulse Ox 100 01/21/19 10:40 - Orders/Labs/Meds Orders: Active Orders 24 hr Category Date Time Status EKG 12 Lead [EKG Documentation Completion] [] URGENT Care 01/21/19 11:08 Active Peripheral IV Care [RC] . DIRECTED Care 01/21/19 11:59 Active Peripheral IV Insertion Adult [OM.PC] Stat Oth 01/21/19 11:59 Ordered Labs: Laboratory Tests 01/21/19 01/21/19 Range/Units 10:21 10:21 WBC 4.8 L (5.0-10.0) 10^3/uL RBC 4.63 (4.2-5.4) 10^6/uL Hgb 11.5 L (12.0-16.0) g/dL Hct 36.9 L (37.0-47.0) % MCV 79.7 L D (80-100) fL MCH 24.8 L (27.0-34.0) pg MCHC 31.2 L (33.0-35.0) g/dL Plt Count 163 D (150-450) 10^3/uL Neut % (Auto) 51.3 (42.2-75.2) % Lymph % (Auto) 18.7 L (20.5-50.1) % [place] % (Auto) 8.7 H (2-8) % Eos % (Auto) 20.5 H (1.0-3.0) % Baso % (Auto) 0.8 (0.0-1.0) % Sodium 132 L (135-145) mmol/L Potassium 7.2 H* D (3.6-5.0) mmol/L Chloride 92 L (101-111) mmol/L Carbon Dioxide 13.0 L D (21.0-31.0) mmol/L Anion Gap 34.2 BUN 125 H D (7-18) mg/dL Creatinine 18.9 H D (0.6-1.3) mg/dL Est Cr Clr Drug Dosing 3.10 mL/min Estimated GFR (MDRD) 2 BUN/Creatinine Ratio 6.61 Glucose 90 (74-105) mg/dL Calcium 6.8 L D (8.4-10.2) mg/dl Total Bilirubin 1.7 H (0.2-1.0) mg/dL AST 15 (10-42) IU/L ALT 6 L (10-60) IU/L Alkaline Phosphatase 108 (42-121) IU/L B-Natriuretic Peptide 2180 H (0-100) pg/ml Total Protein 8.0 (6.7-8.2) g/dl Albumin 3.3 (3.2-5.5) g/dl Globulin 4.7 Albumin/Globulin Ratio 0.70 Meds: Medications Discontinued Medications Generic Name Dose Route Start Last Admin Trade Name Michaelq PRN Reason Stop Dose Admin Calcium Gluconate 1 gm 01/21/19 12:33 01/21/19 13:11 Calcium Gluconate IVPUSH 01/21/19 12:34 1 gm ONETIME ONE Administration Dextrose/Water 50 ml 01/21/19 12:33 01/21/19 12:59 Dextrose 50% In Water IVPUSH 01/21/19 12:34 50 ml ONETIME ONE Administration Insulin Human Regular 10 unit 01/21/19 12:33 01/21/19 13:29 Humulin R IV 01/21/19 12:34 10 unit ONETIME ONE Administration Insulin Human Regular Confirm 01/21/19 12:50 01/21/19 13:05 Humulin R Administered 01/21/19 12:51 Not Given Dose 300 unit .ROUTE .STK-MED ONE Sodium Bicarbonate 50 meq 01/21/19 12:33 01/21/19 13:01 Sodium Bicarbonate 8.4% IVPUSH 01/21/19 12:34 50 meq ONETIME ONE Administration Sodium Chloride 10 ml 01/21/19 11:59 01/21/19 11:15 Saline Flush FLUSH 10 ml ASDIRECTED PRN Administration Keep Vein Open - Re-Assessments/Exams Free Text/Narrative Re-Assessment/Exam: 01/21/19 Her EKG does show minimal if any widening of the QRS. No prolonged QT. Regular P waves. Her potassium is quite elevated at 7.2. No bradycardia. Calcium gluconate sodium bicarbonate dextrose and insulin was given. I called and spoke with Dr. Valdovinos the hospitalist mercerizing range controller at [facility] in [place]. HPI ER Course findings and concerns were relayed to her. Her questions were answered no new orders and she accepted the patient in transfer. I did spend an extended period of time visiting with the patient the importance of making her dialysis. Her potassium is life-threatening and can be completely prevented with regular dialysis. The patient was comfortable with the plan. Departure - Departure Time of Disposition: 14:00 Disposition: DC/Tfer to [facility] 02 Clinical Impression: Hyperkalemia, Chronic kidney disease requiring chronic dialysis - Discharge Information Referrals: PCP,Unobtain [Primary Care Provider] - Forms: ED Department Discharge - My Orders Last 24 Hours: My Active Orders 01/21/19 11:08 EKG 12 Lead [EKG Documentation Completion] [RC] URGENT 01/21/19 11:59 Peripheral IV Care [RC] . DIRECTED Peripheral IV Insertion Adult [OM.PC] Stat - Assessment/Plan Last 24 Hours: My Active Orders 01/21/19 11:08 EKG 12 Lead [EKG Documentation Completion] [RC] URGENT 01/21/19 11:59 Peripheral IV Care [RC] . DIRECTED Peripheral IV Insertion Adult [OM.PC] Stat Assessment:: Hyperkalemia CRF on dialysis None compliance with medical regimen. Plan: Transfer to [facility] for further care and evaluation.
[2019-01-21] MEDS ORDERED: Sodium Chloride 0.9% 10 ML Syringe FLUSH PRN (11:59)
[2019-01-21 12:17] LABS: ANION GAP 34.2
[2019-01-21] MEDS ORDERED: 50% Dextrose in Water 50 ML Syringe IVPUSH ONE (12:33)
[2019-01-21] MEDS ORDERED: Sodium Bicarbonate 8.4% 50 MEQ/50 ML Syringe IVPUSH ONE (12:33)
[2019-01-21] MEDS ORDERED: Insulin Regular, Human 100 Units/ML 3 ML Vial IV ONE (12:33)
[2019-01-21] MEDS ORDERED: Calcium Gluconate 10% 1 GM/10 ML SDV IVPUSH ONE (12:33)
[2019-01-21] MEDS ORDERED: Insulin Regular, Human 100 Units/ML 3 ML Vial ONE (12:50)
== END 2019-01-21 15:05 ==
LOC: DL.ED 10:34
DX: I13.2 Hypertensive heart and chronic kidney disease with heart failure and with stage 5 chronic kidney disease, or end stage renal disease (principal); I50.9 Heart failure, unspecified; N18.6 End stage renal disease; Z99.2 Dependence on renal dialysis; Z88.5 Allergy status to narcotic agent; Z79.899 Other long term (current) drug therapy; E87.5 Hyperkalemia
CPT/HCPCS: 36415; 80053; 83880; 85025; 93005; 96374; 96375; 99285; J0610; J1815; J7060

== ENCOUNTER 2019-03-04 06:30 | Emergency (ER) | payer MEDICAID, MEDICARE ==
[2019-03-04 06:39] VITALS: BP 196/75
[2019-03-04] MEDS: fentaNYL 100 MCG/2 ML SDV IVPUSH ONE ×2 (07:11→08:24)
[2019-03-04] MEDS: Oxymetazoline 0.05% Nasal Spray 15 ML Bottle ONE (07:14)
[2019-03-04 07:41] LABS: ANION GAP 25.8
--- NOTE | 2019-03-04 07:51 | EDM.PDOC ---
<Carla Johnston Garcia - Last Filed: 03/04/19 07:54> ED HPI GENERAL MEDICAL PROBLEM - General Chief Complaint: ENT Problem Stated Complaint: AMBULANCE-UNKNOWN Time Seen by Provider: 03/04/19 06:35 Source of Information: Reports: Patient, EMS History Limitations: Reports: No Limitations - History of Present Illness INITIAL COMMENTS - FREE TEXT/NARRATIVE: Dental extraction yesterday at 10am at [facility] for toothache. Denies any "abcess" Reports bleeding from area since has been applying pressure to area. Stated contacted Tooth/Teeth Pain Score (Numeric/FACES): 8 - Related Data Allergies Allergy/AdvReac Type Severity Reaction Status Date / Time codeine Allergy Hives Verified 01/21/19 11:15 Home Meds: Home Meds Calcium Acetate [PhosLo] 4 cap PO ASDIRECTED 07/05/15 [History] Losartan Potassium [Cozaar] 100 mg PO DAILY 07/05/15 [History] Metoprolol Succinate [Toprol XL] 50 mg PO BID 07/05/15 [History] Acetaminophen [Tylenol] 650 mg PO ASDIRECTED PRN 08/29/18 [History] Bumetanide 1 mg PO DAILY 08/29/18 [History] Latanoprost/Pf [Latanoprost 0.005% Eye Drop] 1 drop EYEBOTH DAILY 08/29/18 [ History] Albuterol Sulfate [Proair Respiclick] 2 INH Q6H PRN 10/24/18 [History] Benzonatate [Tessalon Perle] 100 mg PO Q6H PRN 10/24/18 [History] Diclofenac Sodium [Voltaren 1% Gel] 100 gm TD TID 10/24/18 [History] Ondansetron [Zofran] 4 mg PO DAILY PRN 10/24/18 [History] predniSONE [Prednisone] 10 mg PO DAILY 10/24/18 [History] Past Medical History HEENT History: Reports: Cataract, Hard of Hearing Other HEENT History: 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 Cardiovascular History: Reports: Heart Failure, Hypertension Genitourinary History: Reports: Dialysis, Other (See Below) Other Genitourinary History: 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 ED EXAM, ENT - Physical Exam Exam: See Below Exam Limited By: No Limitations General Appearance: Alert, Moderate Distress. No: Anxious Ears: Normal External Exam, Hearing Grossly Normal Nose: Normal Inspection Mouth/Throat: Bleeding (right upper posterior molar area, active bleeding. Pooling when flat, frequent spitting around gauze packing. ). No: Normal Teeth Head: Atraumatic, Normocephalic Neck: Normal Inspection Respiratory/Chest: No Respiratory Distress, Lungs Clear Cardiovascular: Regular Rate, Rhythm Neurological: Alert, Oriented, Normal Cognition Psychiatric: Normal Affect, Normal Mood Skin: Jaundice (alight ) Course - Vital Signs Last Recorded V/S: Last Vital Signs Temp 36.5 C 03/04/19 06:35 Pulse 102 H 03/04/19 06:35 Resp 20 03/04/19 06:35 BP 196/75 H 03/04/19 06:35 Pulse Ox 100 03/04/19 06:35 - Orders/Labs/Meds Orders: Active Orders 24 hr Category Date Time Status PACKED CELLS [RED BLOOD CELLS LP] [BBK] Stat Lab 03/04/19 07:09 Results TYPE AND SCREEN [BBK] Stat Lab 03/04/19 07:09 Results Transfuse Red Blood Cells [COMM] Stat Oth 03/04/19 08:01 Ordered Labs: Laboratory Tests 03/04/19 03/04/19 03/04/19 Range/Units 07:09 07:09 07:09 WBC 6.7 (5.0-10.0) 10^3/uL RBC 3.43 L (4.2-5.4) 10^6/uL Hgb 8.9 L D (12.0-16.0) g/dL Hct 30.0 L (37.0-47.0) % MCV 87.5 D (80-100) fL MCH 25.9 L (27.0-34.0) pg MCHC 29.7 L (33.0-35.0) g/dL Plt Count 280 D (150-450) 10^3/uL Neut % (Auto) 69.6 (42.2-75.2) % Lymph % (Auto) 15.1 L (20.5-50.1) % Grainger % (Auto) 8.5 H (2-8) % Eos % (Auto) 5.2 H (1.0-3.0) % Baso % (Auto) 1.6 H (0.0-1.0) % PT 12.4 H D (9.0-12.0) SEC INR 1.3 H (0.9-1.2) Sodium 134 L (135-145) mmol/L Potassium 5.8 H (3.6-5.0) mmol/L Chloride 89 L (101-111) mmol/L Carbon Dioxide 25.0 D (21.0-31.0) mmol/L Anion Gap 25.8 BUN 49 H D (7-18) mg/dL Creatinine 7.3 H D (0.6-1.3) mg/dL Est Cr Clr Drug Dosing 8.02 mL/min Estimated GFR (MDRD) 6 BUN/Creatinine Ratio 6.71 Glucose 91 (74-105) mg/dL Calcium 7.8 L (8.4-10.2) mg/dl Total Bilirubin 1.0 (0.2-1.0) mg/dL AST 23 (10-42) IU/L ALT 12 (10-60) IU/L Alkaline Phosphatase 87 (42-121) IU/L Total Protein 7.7 (6.7-8.2) g/dl Albumin 2.9 L (3.2-5.5) g/dl Globulin 4.8 Albumin/Globulin Ratio 0.60 Blood Type Gel Antibody Screen Crossmatch 03/04/19 Range/Units 07:09 WBC (5.0-10.0) 10^3/uL RBC (4.2-5.4) 10^6/uL Hgb (12.0-16.0) g/dL Hct (37.0-47.0) % MCV (80-100) fL MCH (27.0-34.0) pg MCHC (33.0-35.0) g/dL Plt Count (150-450) 10^3/uL Neut % (Auto) (42.2-75.2) % Lymph % (Auto) (20.5-50.1) % Grainger % (Auto) (2-8) % Eos % (Auto) (1.0-3.0) % Baso % (Auto) (0.0-1.0) % PT (9.0-12.0) SEC INR (0.9-1.2) Sodium (135-145) mmol/L Potassium (3.6-5.0) mmol/L Chloride (101-111) mmol/L Carbon Dioxide (21.0-31.0) mmol/L Anion Gap BUN (7-18) mg/dL Creatinine (0.6-1.3) mg/dL Est Cr Clr Drug Dosing mL/min Estimated GFR (MDRD) BUN/Creatinine Ratio Glucose (74-105) mg/dL Calcium (8.4-10.2) mg/dl Total Bilirubin (0.2-1.0) mg/dL AST (10-42) IU/L ALT (10-60) IU/L Alkaline Phosphatase (42-121) IU/L Total Protein (6.7-8.2) g/dl Albumin (3.2-5.5) g/dl Globulin Albumin/Globulin Ratio Blood Type O POSITIVE Gel Antibody Screen Negative Crossmatch See Detail Meds: Medications Discontinued Medications Generic Name Dose Route Start Last Admin Trade Name Freq PRN Reason Stop Dose Admin Fentanyl 25 mcg 03/04/19 06:49 03/04/19 07:11 Sublimaze IVPUSH 03/04/19 06:50 25 mcg ONETIME ONE Administration Fentanyl 25 mcg 03/04/19 08:19 03/04/19 08:24 Sublimaze IVPUSH 03/04/19 08:20 25 mcg ONETIME ONE Administration Oxymetazoline HCl 1 ml 03/04/19 07:05 03/04/19 07:14 Afrin Original 0.05% Nasal [place] .XX 03/04/19 07:06 1 ml ONETIME ONE Administration - Re-Assessments/Exams Free Text/Narrative Re-Assessment/Exam: 03/04/19 08:20 attempt with pressure of gauze unsuccessful. Continued bleeding. TC consult Dr Kaushik Alicea oral surgery, recommendation for Afrin, surgicell or tea bad,. Mild improvement with afrin, Unsustainned. Recurrent active bleeding. Attempting to find provider to manage ongoing oral bleeding as dentist at [facility] unavailable today. Surgicell shan. Patient compliant attempting to maintain pressure, Uncomfortable rating pain 8/10. RBC x 1 unit pending . Trnsfer care to [facility] with shift change Departure - Departure Disposition: DC/Tfer to [facility] 02 Clinical Impression: Surgical wound hemorrhage after dental procedure - Discharge Information Forms: Interfacility Transfer EMTALA Care Plan Goals: Discussed the patient's history, examination and attempted treatments with [facility]. [facility] relayed the messages to Dr. Flores in the ED. Dr. Flores accepted the patient for continued evaluation and further management. The patient will be transported by [facility]. <Blaine Dempsey M - Last Filed: 03/04/19 08:57> Course - Re-Assessments/Exams Free Text/Narrative Re-Assessment/Exam: 03/04/19 08:53 Patient care was taken over at shift change. After numerous calls from previous provider, a conversation was had with Dr. Messer ([place] [facility]). Dr. Messer advised to have the patient transferred to the [facility] ED for continued evaluation and management. The patient was accepted by Dr. Flores through the [facility] ED. Departure - Departure Time of Disposition: 08:55 Condition: Fair - Discharge Information *PRESCRIPTION DRUG MONITORING PROGRAM REVIEWED*: Not Applicable *COPY OF PRESCRIPTION DRUG MONITORING REPORT IN PATIENT MARIBEL: Not Applicable
== END 2019-03-04 09:23 ==
LOC: DL.ED 06:30
DX: K91.840 Postprocedural hemorrhage of a digestive system organ or structure following a digestive system procedure (principal); I11.0 Hypertensive heart disease with heart failure; I50.9 Heart failure, unspecified; Z88.5 Allergy status to narcotic agent; Z79.899 Other long term (current) drug therapy
CPT/HCPCS: 36415; 80053; 85025; 85610; 86850; 86900; 86901; 86920; 86922; 96374; 96376; 99284; A9270; J3010

== ENCOUNTER 2019-07-10 09:40 | Emergency (ER) | payer MEDICARE, MEDICAID ==
[2019-07-10 09:47] VITALS: BP 127/60
--- NOTE | 2019-07-10 09:52 | EDM.PDOC ---
ED HPI GENERAL MEDICAL PROBLEM - General Chief Complaint: Upper Extremity Injury/Pain Stated Complaint: FELL, SHOULDER INJURY AND STIFF ARM Time Seen by Provider: 07/10/19 09:50 Source of Information: Reports: Patient, Old Records, RN, RN Notes Reviewed History Limitations: Reports: No Limitations - History of Present Illness INITIAL COMMENTS - FREE TEXT/NARRATIVE: Pt presents to ER from home by POV with c/o of right shoulder pain sustained this morning from a ground level fall when she tripped walking up some stairs. Pt states she landed on the shoulder and now cannot move it, however she is moving it as she describes the injury. Denies head injury, neck pain, or any other injury. Onset: Today Duration: Constant Location: Reports: Upper Extremity, Right Quality: Reports: Ache Severity: Severe Improves with: Reports: Immobilization Worsens with: Reports: Movement Associated Symptoms: Reports: No Other Symptoms Right Shoulder Pain Score (Numeric/FACES): 10 - Related Data Allergies Allergy/AdvReac Type Severity Reaction Status Date / Time codeine Allergy Hives Verified 01/21/19 11:15 Home Meds: Home Meds Calcium Acetate [PhosLo] 4 cap PO ASDIRECTED 07/05/15 [History] Losartan Potassium [Cozaar] 100 mg PO DAILY 07/05/15 [History] Metoprolol Succinate [Toprol XL] 50 mg PO BID 07/05/15 [History] Acetaminophen [Tylenol] 650 mg PO ASDIRECTED PRN 08/29/18 [History] Bumetanide 1 mg PO DAILY 08/29/18 [History] Latanoprost/Pf [Latanoprost 0.005% Eye Drop] 1 drop EYEBOTH DAILY 08/29/18 [ History] Albuterol Sulfate [Proair Respiclick] 2 INH Q6H PRN 10/24/18 [History] Benzonatate [Tessalon Perle] 100 mg PO Q6H PRN 10/24/18 [History] Diclofenac Sodium [Voltaren 1% Gel] 100 gm TD TID 10/24/18 [History] Ondansetron [Zofran] 4 mg PO DAILY PRN 10/24/18 [History] predniSONE [Prednisone] 10 mg PO DAILY 10/24/18 [History] Past Medical History HEENT History: Reports: Cataract, Hard of Hearing Other HEENT History: 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 Cardiovascular History: Reports: Heart Failure, Hypertension Genitourinary History: Reports: Dialysis, Other (See Below) Other Genitourinary History: 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 ASSISTANT MANAGER History: Reports: , Other (See Below) Other HOTEL ASSISTANT MANAGER History: toxemia of - Infectious Disease History Infectious Disease History: Reports: Chicken Pox - Past Surgical History HEENT Surgical History: Reports: Cataract Surgery GI Surgical History: Reports: Cholecystectomy Social & Family History - Family History Family Medical History: Noncontributory - Caffeine Use Caffeine Use: Reports: Soda, Tea - Living Situation & Occupation Living situation: Reports: with Family Review of Systems - Review of Systems Review Of Systems: ROS reveals no pertinent complaints other than HPI. ED EXAM, GENERAL - Physical Exam Exam: See Below Exam Limited By: No Limitations General Appearance: Alert, No Apparent Distress, Other (Chronically ill appearing) Ears: Normal External Exam Nose: Normal Inspection Throat/Mouth: Normal Inspection, Normal Voice, No Airway Compromise Head: Atraumatic, Normocephalic Neck: Normal Inspection, Supple, Non-Tender, Full Range of Motion Respiratory/Chest: No Respiratory Distress, Lungs Clear, No Accessory Muscle Use , Chest Non-Tender Cardiovascular: Normal Peripheral Pulses, Regular Rate, Rhythm Back Exam: Normal Inspection Extremities: Normal Capillary Refill, Arm Pain (Right shoulder with bruising, no visible deformity. Pain focal to Rt clavicle.), Limited Range of Motion ( Right shoulder), Other (AV fistula at Rt arm). No: Joint Swelling, Increased Warmth, Redness Neurological: Alert, Oriented, No Motor/Sensory Deficits Psychiatric: Normal Mood Skin Exam: Warm, Dry, Intact Course - Vital Signs Last Recorded V/S: Last Vital Signs Temp 97.4 F 07/10/19 09:46 Pulse 81 07/10/19 09:46 Resp 16 07/10/19 09:46 BP 127/60 07/10/19 09:46 Pulse Ox 100 07/10/19 09:46 - Orders/Labs/Meds Orders: Active Orders 24 hr Category Date Time Status Shoulder Comp Rt [CR] Urgent Exams 07/10/19 09:52 Taken DME for Discharge [COMM] Routine Oth 07/10/19 10:08 Ordered Meds: Medications Discontinued Medications Generic Name Dose Route Start Last Admin Trade Name Freq PRN Reason Stop Dose Admin Hydromorphone HCl 1 mg 07/10/19 10:08 Dilaudid IM 07/10/19 10:09 ONETIME ONE Departure - Departure Time of Disposition: 10:11 Disposition: Home, Self-Care 01 Condition: Good Clinical Impression: Closed fracture of right clavicle Qualifiers: Encounter type: initial encounter Clavicle location: lateral end Fracture alignment: displaced Qualified Code(s): S42.031A - Displaced fracture of lateral end of right clavicle, initial encounter for closed fracture - Discharge Information *PRESCRIPTION DRUG MONITORING PROGRAM REVIEWED*: No *COPY OF PRESCRIPTION DRUG MONITORING REPORT IN PATIENT MARIBEL: No Instructions: Clavicle Fracture, [id number] Forms: ED Department Discharge Additional Instructions: Rx: [place] (Hydrocodone APAP) 5mg/325mg *Do not drive or consume alcohol while under the influence of this medication. Wear right shoulder sling (remove to sleep and to shower). Call [phone] today to schedule an appointment with [facility] for clavicle fracture evaluation. Follow up in clinic with your primary doctor if any further pain management is needed. - My Orders Last 24 Hours: My Active Orders 07/10/19 09:52 Shoulder Comp Rt [CR] Urgent 07/10/19 10:08 DME for Discharge [COMM] Routine - Assessment/Plan Last 24 Hours: My Active Orders 07/10/19 09:52 Shoulder Comp Rt [CR] Urgent 07/10/19 10:08 DME for Discharge [COMM] Routine
[2019-07-10] MEDS ORDERED: HYDROmorphone 1 MG/ML Syringe IM ONE (10:08)
== END 2019-07-10 10:24 | disposition home or self-care (01) ==
LOC: DL.ED 09:40
DX: S42.031A Displaced fracture of lateral end of right clavicle, initial encounter for closed fracture (principal); I11.0 Hypertensive heart disease with heart failure; I50.9 Heart failure, unspecified; Z88.5 Allergy status to narcotic agent; Z79.899 Other long term (current) drug therapy; Z99.2 Dependence on renal dialysis; W10.9XXA Fall (on) (from) unspecified stairs and steps, initial encounter
CPT/HCPCS: 73030-RT; 96372; 99283-25; J1170

== ENCOUNTER 2019-09-01 19:06 | Emergency (ER) | payer MEDICARE, MEDICAID ==
[2019-09-01 19:16] VITALS: BP 133/46; PULSE 88
[2019-09-01] MEDS: Sodium Chloride 0.9% 10 ML Syringe FLUSH PRN (19:38)
[2019-09-01 19:44] LABS: ANION GAP 27.9
[2019-09-01] MEDS: Ondansetron 4 MG/2 ML SDV IV ONE (20:01)
[2019-09-01] MEDS: Dicyclomine 20 MG/2 ML SDV IM ONE (20:03)
--- NOTE | 2019-09-01 20:53 | EDM.PDOC ---
ED HPI GENERAL MEDICAL PROBLEM - General Chief Complaint: Abdominal Pain Stated Complaint: AMBULANCE Time Seen by Provider: 09/01/19 19:22 Source of Information: Reports: Patient, RN, RN Notes Reviewed History Limitations: Reports: No Limitations - History of Present Illness INITIAL COMMENTS - FREE TEXT/NARRATIVE: 44 year female with a significant PMH who presents to the ER with complaints of abdominal pain 3 days. She reports bloody stools and diarrhea. She states she missed dialysis because of abdominal pain and weakness. She also reports nausea and vomited once at home. Denies any fever or chills or recent travel. patient was recently diagnosed with GIRARD and has been tapped a couple of times for ascites. Lower Abdomen Pain Score (Numeric/FACES): 10 - Related Data Allergies Allergy/AdvReac Type Severity Reaction Status Date / Time codeine Allergy Hives Verified 09/01/19 19:17 Home Meds: Home Meds Calcium Acetate [PhosLo] 4 cap PO ASDIRECTED 07/05/15 [History] Losartan Potassium [Cozaar] 100 mg PO DAILY 07/05/15 [History] Metoprolol Succinate [Toprol XL] 50 mg PO BID 07/05/15 [History] Acetaminophen [Tylenol] 650 mg PO ASDIRECTED PRN 08/29/18 [History] Past Medical History HEENT History: Reports: Cataract, Hard of Hearing Other HEENT History: 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 Cardiovascular History: Reports: Heart Failure, Hypertension Respiratory History: Reports: None Gastrointestinal History: Reports: Cholelithiasis Genitourinary History: Reports: Dialysis, Other (See Below) Other Genitourinary History: 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 WARE CARRIER History: Reports: , Other (See Below) Other WARE CARRIER History: toxemia of Musculoskeletal History: Reports: None Neurological History: Reports: None Psychiatric History: Reports: None Endocrine/Metabolic History: Reports: None Hematologic History: Reports: None Immunologic History: Reports: None Oncologic (Cancer) History: Reports: None Dermatologic History: Reports: None - Infectious Disease History Infectious Disease History: Reports: Chicken Pox - Past Surgical History HEENT Surgical History: Reports: Cataract Surgery GI Surgical History: Reports: Cholecystectomy Social & Family History - Family History Family Medical History: Noncontributory Endocrine/Metabolic: Reports: None - Tobacco Use Smoking Status *Q: Never Smoker Second Hand Smoke Exposure: No - Caffeine Use Caffeine Use: Reports: Soda, Tea - Recreational Drug Use Recreational Drug Use: No - Living Situation & Occupation Living situation: Reports: with Family ED ROS GENERAL - Review of Systems Review Of Systems: See Below Constitutional: Reports: Malaise, Decreased Appetite HEENT: Reports: No Symptoms Respiratory: Reports: No Symptoms, Shortness of Breath (due to abdominal pain) Cardiovascular: Reports: No Symptoms Endocrine: Reports: No Symptoms GI/Abdominal: Reports: Abdominal Pain, Bloody Stool (no bloody stool noted in the ER), Distension, Flatus, Vomiting Musculoskeletal: Reports: No Symptoms Skin: Reports: No Symptoms Psychiatric: Reports: Anxiety ED EXAM, GI/ABD - Physical Exam Exam: See Below Exam Limited By: No Limitations General Appearance: Alert, Anxious, Moderate Distress Ears: Normal External Exam, Normal Canal, Hearing Grossly Normal, Normal TMs Nose: Normal Inspection, Normal Mucosa, No Blood Throat/Mouth: Normal Inspection, Normal Lips, Normal Teeth, Normal Gums, Normal Oropharynx, Normal Voice, No Airway Compromise Head: Atraumatic, Normocephalic Neck: Normal Inspection, Supple, Non-Tender, Full Range of Motion Respiratory/Chest: No Respiratory Distress, Lungs Clear, Normal Breath Sounds, No Accessory Muscle Use, Chest Non-Tender Cardiovascular: Normal Peripheral Pulses, Regular Rate, Rhythm, No Edema, No Gallop, No JVD, No Murmur, No Rub GI/Abdominal Exam: Distended, Guarding, Tender (with auscultation), Hernia ( umbilical) (Female) Exam: Deferred Rectal (Female) Exam: Deferred Extremities: Normal Inspection, Normal Range of Motion, Non-Tender Neurological: Alert, Oriented, CN II-XII Intact, Normal Cognition, Normal Gait, Normal Reflexes, No Motor/Sensory Deficits Psychiatric: Anxious, Tearful Skin Exam: Warm, Dry, Intact, No Rash Lymphatic: No Adenopathy Course - Vital Signs Last Recorded V/S: Last Vital Signs Temp 98 F 09/01/19 19:06 Pulse 88 09/01/19 19:06 Resp 18 09/01/19 19:06 BP 133/46 L 09/01/19 19:06 Pulse Ox 100 09/01/19 19:06 - Orders/Labs/Meds Labs: Laboratory Tests 09/01/19 09/01/19 09/01/19 Range/Units 19:12 19:12 19:12 WBC 8.9 (5.0-10.0) 10^3/uL RBC 4.68 (4.2-5.4) 10^6/uL Hgb 12.1 D (12.0-16.0) g/dL Hct 37.9 (37.0-47.0) % MCV 81.0 D (80-100) fL MCH 25.9 L (27.0-34.0) pg MCHC 31.9 L (33.0-35.0) g/dL Plt Count 277 (150-450) 10^3/uL Neut % (Auto) 73.7 (42.2-75.2) % Lymph % (Auto) 14.8 L (20.5-50.1) % [place] % (Auto) 8.1 H (2-8) % Eos % (Auto) 3.0 (1.0-3.0) % Baso % (Auto) 0.4 (0.0-1.0) % PT 11.4 (9.0-12.0) SEC INR 1.1 (0.9-1.2) Sodium 133 L (135-145) mmol/L Potassium 4.9 (3.6-5.0) mmol/L Chloride 85 L (101-111) mmol/L Carbon Dioxide 25.0 (21.0-31.0) mmol/L Anion Gap 27.9 BUN 51 H (7-18) mg/dL Creatinine 9.2 H D (0.6-1.3) mg/dL Est Cr Clr Drug Dosing 6.30 mL/min Estimated GFR (MDRD) 5 BUN/Creatinine Ratio 5.54 Glucose 97 (74-105) mg/dL Calcium 8.3 L (8.4-10.2) mg/dl Total Bilirubin 1.2 H (0.2-1.0) mg/dL AST 19 (10-42) IU/L ALT 7 L (10-60) IU/L Alkaline Phosphatase 116 (42-121) IU/L B-Natriuretic Peptide (0-100) pg/ml Total Protein 8.4 H (6.7-8.2) g/dl Albumin 3.2 (3.2-5.5) g/dl Globulin 5.2 Albumin/Globulin Ratio 0.62 09/01/19 Range/Units 19:12 WBC (5.0-10.0) 10^3/uL RBC (4.2-5.4) 10^6/uL Hgb (12.0-16.0) g/dL Hct (37.0-47.0) % MCV (80-100) fL MCH (27.0-34.0) pg MCHC (33.0-35.0) g/dL Plt Count (150-450) 10^3/uL Neut % (Auto) (42.2-75.2) % Lymph % (Auto) (20.5-50.1) % [place] % (Auto) (2-8) % Eos % (Auto) (1.0-3.0) % Baso % (Auto) (0.0-1.0) % PT (9.0-12.0) SEC INR (0.9-1.2) Sodium (135-145) mmol/L Potassium (3.6-5.0) mmol/L Chloride (101-111) mmol/L Carbon Dioxide (21.0-31.0) mmol/L Anion Gap BUN (7-18) mg/dL Creatinine (0.6-1.3) mg/dL Est Cr Clr Drug Dosing mL/min Estimated GFR (MDRD) BUN/Creatinine Ratio Glucose (74-105) mg/dL Calcium (8.4-10.2) mg/dl Total Bilirubin (0.2-1.0) mg/dL AST (10-42) IU/L ALT (10-60) IU/L Alkaline Phosphatase (42-121) IU/L B-Natriuretic Peptide 328 H (0-100) pg/ml Total Protein (6.7-8.2) g/dl Albumin (3.2-5.5) g/dl Globulin Albumin/Globulin Ratio Meds: Medications Discontinued Medications Generic Name Dose Route Start Last Admin Trade Name Freq PRN Reason Stop Dose Admin Dicyclomine HCl 20 mg 09/01/19 19:50 09/01/19 20:03 Bentyl IM 09/01/19 19:51 20 mg ONETIME ONE Administration Hydromorphone HCl 1 mg 09/01/19 20:47 09/01/19 20:58 Dilaudid IVPUSH 09/01/19 20:48 1 mg ONETIME ONE Administration Metoclopramide HCl 10 mg 09/01/19 21:03 09/01/19 21:08 Reglan IVPUSH 09/01/19 21:04 10 mg ONETIME ONE Administration Ondansetron HCl 4 mg 09/01/19 19:51 09/01/19 20:01 Zofran IV 09/01/19 19:52 4 mg ONETIME ONE Administration Sodium Chloride 10 ml 09/01/19 19:01 09/01/19 19:38 Saline Flush FLUSH 10 ml ASDIRECTED PRN Administration Keep Vein Open - Radiology Interpretation Free Text/Narrative:: Chest Xray FINDINGS: Tubes, catheters and devices: EKG leads overlie the chest. Lungs: Unremarkable. No consolidation. Pleural space: Unremarkable. No pleural effusion. No pneumothorax. Heart/Mediastinum: Unremarkable. No cardiomegaly. Bones/joints: Unremarkable. Other findings: No significant change is identified since the prior exam. IMPRESSION: No acute findings. Thank you for allowing us to participate in the care of your patient. Dictated and Authenticated by: Angus Monroe MD 09/01/2019 8:44 PM Central Time ([place] [employer] [place]) Abdominal xray FINDINGS: Gastrointestinal tract: There are air-fluid levels in multiple small bowel loops with modest distention. No air is seen in the colon or the rectum. Intraperitoneal space: No evidence of intraperitoneal free air. Surgical clips are present in the right upper quadrant, consistent with previous cholecystectomy. Vasculature: The vasculature demonstrates diffuse moderate atherosclerotic calcification. Bones/joints: Unremarkable Soft tissues: The psoas margins are obscured. IMPRESSION: Findings suggest small bowel obstruction. Thank you for allowing us to participate in the care of your patient. Dictated and Authenticated by: Angus Monroe MD 09/01/2019 8:46 PM Central Time ([place]) CT abdominal Lungs: The visualized portions of the lung bases are normal. Heart: The visualized portions of the heart are unremarkable. Liver: The liver has a nodular contour consistent with cirrhosis. Gallbladder and bile ducts: There has been a cholecystectomy. Pancreas: The pancreas is normal. Spleen: The spleen is normal. Adrenals: The adrenal glands are normal. Kidneys and ureters: The kidneys are normal. Stomach and bowel: There appears to be radiopaque material in the posterior aspect of the fundus of the stomach. The duodenum and multiple loops of small bowel are distended with fluid and some gas. The bowel loops measure up to about 5.3 cm in diameter. The colon is almost entirely collapsed. Appendix: A normal appendix is identified. Intraperitoneal space: There is a large amount of free intraperitoneal fluid present. No evidence of intraperitoneal free air. Vasculature: The vasculature demonstrates diffuse moderate atherosclerotic calcification. Lymph nodes: No pathologic lymph node enlargement is demonstrated. Bladder: The bladder is collapsed and is not well seen. Reproductive: The uterus is normal. Bones/joints: Unremarkable Soft tissues: There is a fluid and bowel containing ventral hernia. This appears to be a point of obstruction. The hernia is new since the prior study. The extra-abdominal soft tissues are normal. IMPRESSION: 1. Hepatic contour suggests cirrhosis. 2. Extensive ascites. 3. Small small bowel obstruction at the level of the ventral hernia. COMMENT: Consistent with the [employer]'s Incidental Findings Committee Report (J Am Claudine Radiol 2010): Unless the patient's specific circumstances suggest otherwise , any liver lesion 0.5 cm or less, any cystic kidney lesion less than 1.0 cm, and/or any adrenal lesion 1.0 cm or less not otherwise characterized in this report as possessing suspicious or indeterminate imaging features is/are highly likely to be benign and do not require follow-up imaging or biopsy. Thank you for allowing us to participate in the care of your patient. Dictated and Authenticated by: Angus Monroe MD 09/01/2019 9:55 PM Central Time ([place]) Departure - Departure Time of Disposition: 20:40 Disposition: DC/Tfer to Acute Hospital 02 Condition: Fair Clinical Impression: SBO (small bowel obstruction), CHF, Congestive heart failure, Chronic kidney disease requiring chronic dialysis, Hyponatremia Ascites Qualifiers: Ascites type: other type Qualified Code(s): R18.8 - Other ascites - Discharge Information *PRESCRIPTION DRUG MONITORING PROGRAM REVIEWED*: Not Applicable *COPY OF PRESCRIPTION DRUG MONITORING REPORT IN PATIENT MARIBEL: Not Applicable Referrals: PCP,Unobtain [Primary Care Provider] - Forms: Interfacility Transfer EMTALA Care Plan Goals: patient administered Zofran for nausea with due to relief. Reglan 10 mg administered with relief noted Bentyl and Dilaudid given for abdominal discomfort. Labs reviewed with patient's field hauler Dr. Park for recommended transfer to [facility]. Chest and abdomen x-ray results as noted in the chart and were positive for small bowel obstruction. CT of abdomen performed with ascites and small bowel obstruction noted per radiology. NG tube put with 800 ml output noted and patient reports relief. Case was discussed with Dr. Núñez who accepted patient for transfer. Plan of care discussed with patient and she was in agreement. Patient transferred to [facility]
[2019-09-01] MEDS: HYDROmorphone 1 MG/ML Syringe IVPUSH ONE (20:58)
[2019-09-01] MEDS: Metoclopramide 10 MG/2 ML SDV IVPUSH ONE (21:08)
== END 2019-09-01 23:00 ==
LOC: DL.ED 19:06
DX: K56.609 Unspecified intestinal obstruction, unspecified as to partial versus complete obstruction (principal); I13.2 Hypertensive heart and chronic kidney disease with heart failure and with stage 5 chronic kidney disease, or end stage renal disease; I50.9 Heart failure, unspecified; N18.6 End stage renal disease; E87.1 Hypo-osmolality and hyponatremia; R18.8 Other ascites; Z99.2 Dependence on renal dialysis; Z88.5 Allergy status to narcotic agent; Z79.899 Other long term (current) drug therapy
CPT/HCPCS: 36415; 71046; 74019; 74176; 80053; 82272; 83880; 85025; 85610; 93005; 96374; 96375; 99285-25; J0500; J1170; J2405; J2765

== ENCOUNTER 2020-02-14 14:31 | Emergency (ER) | payer MEDICARE, MEDICAID ==
[2020-02-14] MEDS ORDERED: Sodium Chloride 0.9% 10 ML Syringe FLUSH PRN (14:39)
[2020-02-14 14:44] VITALS: BP 185/77; PULSE 93
[2020-02-14] MEDS ORDERED: 50% Dextrose in Water 50 ML Syringe IVPUSH ONE (14:53)
[2020-02-14] MEDS ORDERED: Lactulose Soln 10 GM/15 ML 30 ML UD Cup PO ONE (15:24)
[2020-02-14 15:30] LABS: PTT,PARTIAL THROMBOPLSTIN TIME 33.6 SEC (22.0-34.0)
[2020-02-14 15:40] LABS: ANION GAP 22.3 mEq/L (7-13); CHLORIDE,CL 92 mmol/L (98-107); SODIUM,NA 136 mmol/L (136-145)
[2020-02-14] MEDS ORDERED: cefTRIAXone 2 GM in Sodium Chloride 0.9% 100 ML IV ONE (16:03)
--- NOTE | 2020-02-14 16:06 | EDM.PDOC ---
Scribed by Ju Martinez 02/14/20 [id number] for Geoff Mcdonald MD ED HPI GENERAL MEDICAL PROBLEM - General Chief Complaint: General Stated Complaint: unknown Time Seen by Provider: 02/14/20 14:32 Source of Information: Reports: Patient, EMS, EMS Notes Reviewed, RN, RN Notes Reviewed History Limitations: Reports: Altered Mental Status - History of Present Illness INITIAL COMMENTS - FREE TEXT/NARRATIVE: Pt arrives to ER from home by [facility] with report by EMS that pt's family reported her to be with worsening confusion, and has missed dialysis. EMS reports pt's blood glucose of 88 on scene. Pt admits to noncompliance with dialysis, and acknowledges that she is confused and "not thinking right". Pt reports her abdomen is "big again, hurts and needs tapped again". She denies fever, chills, N/V/D or constipation. She does not remember if she has been taking her medications regularly or not. Pt denies chest pain, headache, falls or injury. She admits to mild shortness of breath. She denies cough, sore throat, recent travel, or any exposure to confirmed or suspected Covid-19 cases. Onset: Unknown/Unsure Duration: Chronic, Constant, Getting Worse Location: Reports: Abdomen, Generalized Quality: Reports: Pressure (and aching pain in abdomen) Severity: Severe Improves with: Reports: None Worsens with: Reports: None Associated Symptoms: Reports: No Other Symptoms - Related Data Allergies Allergy/AdvReac Type Severity Reaction Status Date / Time codeine Allergy Hives Verified 02/14/20 14:47 Home Meds: Home Meds Calcium Acetate [PhosLo] 4 cap PO ASDIRECTED 07/05/15 [History] Losartan Potassium [Cozaar] 100 mg PO DAILY 07/05/15 [History] Metoprolol Succinate [Toprol XL] 50 mg PO BID 07/05/15 [History] Acetaminophen [Tylenol] 650 mg PO ASDIRECTED PRN 08/29/18 [History] Past Medical History HEENT History: Reports: Cataract, Hard of Hearing Other HEENT History: 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 Cardiovascular History: Reports: Heart Failure, Hypertension Gastrointestinal History: Reports: Bowel Obstruction, Cholelithiasis, Cirrhosis , Jaundice Genitourinary History: Reports: Chronic Renal Insuffiency, Dialysis, Renal Disease, Other (See Below) Other Genitourinary History: 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: Reports: , Other (See Below) Other 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: toxemia of - Infectious Disease History Infectious Disease History: Reports: Chicken Pox - Past Surgical History HEENT Surgical History: Reports: Cataract Surgery GI Surgical History: Reports: Cholecystectomy Social & Family History - Family History Family Medical History: Noncontributory - Tobacco Use Smoking Status *Q: Current Some Day Smoker Tobacco Use Within Last Twelve Months: Cigarettes - Caffeine Use Caffeine Use: Reports: Soda, Tea - Living Situation & Occupation Living situation: Reports: with Family Occupation: Retired ED ROS GENERAL - Review of Systems Review Of Systems: Comprehensive ROS is negative, except as noted in HPI. ED EXAM, GENERAL - Physical Exam Exam: See Below Exam Limited By: Altered Mental Status General Appearance: Alert, No Apparent Distress, Other (Chronically ill, unkept appearance) Eye Exam: Bilateral Eye: EOMI, PERRL, Other (Scleral icterus) Ears: Normal External Exam, Hearing Grossly Normal Nose: Normal Inspection, Normal Mucosa, No Blood Throat/Mouth: Normal Lips, Normal Voice, No Airway Compromise, Other (Dry oral membranes) Head: Atraumatic, Normocephalic Neck: Normal Inspection, Supple, Non-Tender, Full Range of Motion Respiratory/Chest: No Respiratory Distress, No Accessory Muscle Use, Chest Non- Tender, Decreased Breath Sounds, Crackles, Rales Cardiovascular: Regular Rate, Rhythm GI/Abdominal: Distended (protruberant abdomen with ascites wave), Tender (mild to moderate diffuse tenderness. Healing transverse surgical wound near level of umbilicus, intact without drainage or erythema.). No: Guarding, Rigid, Rebound (Female) Exam: Deferred Rectal (Female) Exam: Deferred Back Exam: Normal Inspection Extremities: Normal Range of Motion, Non-Tender, Other (Rt arm AV fistula w/ palbable thrill) Neurological: Alert, No Motor/Sensory Deficits, Confused, Other (Generalized weakness without focal deficits) Psychiatric: Depressed Mood, Flat Affect Skin Exam: Warm, Dry EKG INTERPRETATION EKG Date: 02/14/20 Time: 14:46 Rhythm: Other (sinus rhythm) Rate (Beats/Min): 93 [place]: LAD-Left [place] Deviation P-Wave: Present QRS: Normal (with motion artifact in lead V4) ST-T: Normal QT: Normal Comparison: NA - No Prior EKG Course - Vital Signs Last Recorded V/S: Last Vital Signs Temp 97.7 F 02/14/20 14:43 Pulse 93 02/14/20 14:43 Resp 20 02/14/20 14:43 BP 185/77 H 02/14/20 14:43 Pulse Ox 98 02/14/20 14:43 - Orders/Labs/Meds Orders: Active Orders 24 hr Category Date Time Status Blood Glucose Check, Bedside [] ONETIME Care 02/14/20 14:39 Active Blood Glucose Check, Bedside [] ONETIME Care 02/14/20 15:03 Active EKG 12 Lead [EKG Documentation Completion] [] STAT Care 02/14/20 14:39 Active Peripheral IV Care [] . DIRECTED Care 02/14/20 14:40 Active Chest 1V Frontal [CR] Stat Exams 02/14/20 14:37 Taken AMYLASE [CHEM] Stat Lab 02/14/20 14:53 Results B-TYPE NATRIURETIC PEPTIDE,BNP [CHEM] Stat Lab 02/14/20 14:53 Results COMPREHENSIVE METABOLIC PN,CMP [CHEM] Stat Lab 02/14/20 14:53 Results DRUG SCREEN URINE BIORAD [URCHEM] Stat Lab 02/14/20 14:39 Ordered ETHANOL BLOOD MEDICAL [CHEM] Stat Lab 02/14/20 14:53 Results LIPASE [CHEM] Stat Lab 02/14/20 14:53 Results MAGNESIUM [CHEM] Stat Lab 02/14/20 14:53 Results PHOSPHORUS [CHEM] Stat Lab 02/14/20 14:53 Results TROPONIN I [CHEM] Stat Lab 02/14/20 14:53 Results UA RFX JORGE AND CULT IF INDIC [URIN] Stat Lab 02/14/20 14:39 Ordered Sodium Chloride 0.9% [Saline Flush] Med 02/14/20 14:39 Active 10 ml FLUSH ASDIRECTED PRN cefTRIAXone [Rocephin] 2 gm Med 02/14/20 16:03 Ordered Sodium Chloride 0.9% [Normal Saline] 100 ml IV ONETIME Peripheral IV Insertion Adult [OM.PC] Stat Oth 02/14/20 14:37 Ordered Medication Orders Ceftriaxone Sodium 2 gm/ (Sodium Chloride) 100 mls @ 200 mls/hr IV ONETIME ONE Stop: 02/14/20 16:32 Sodium Chloride (Saline Flush) 10 ml FLUSH ASDIRECTED PRN PRN Reason: Keep Vein Open Last Admin: 02/14/20 15:00 Dose: 10 ml Labs: Laboratory Tests 02/14/20 02/14/20 02/14/20 Range/Units 14:52 14:53 14:53 WBC 11.7 H (5.0-10.0) 10^3/uL RBC 4.97 (4.2-5.4) 10^6/uL Hgb 13.0 (12.0-16.0) g/dL Hct 41.1 (37.0-47.0) % MCV 82.7 (80-100) fL MCH 26.2 L (27.0-34.0) pg MCHC 31.6 L (33.0-35.0) g/dL Plt Count 148 L D (150-450) 10^3/uL Neut % (Auto) 82.1 H (42.2-75.2) % Lymph % (Auto) 5.1 L (20.5-50.1) % [place] % (Auto) 7.0 (2-8) % Eos % (Auto) 5.1 H (1.0-3.0) % Baso % (Auto) 0.7 (0.0-1.0) % PT 17.2 H D (9.0-12.0) SEC INR 1.8 H (0.9-1.2) APTT 33.6 (22.0-34.0) SEC Sodium (136-145) mmol/L Potassium (3.5-5.1) mmol/L Chloride (98-107) mmol/L Carbon Dioxide (21-32) mmol/L Anion Gap (7-13) mEq/L BUN (7-18) mg/dL Creatinine (0.55-1.02) mg/dL Est Cr Clr Drug Dosing Estimated GFR (MDRD) BUN/Creatinine Ratio (No establ ref range) Glucose (74-99) mg/dL POC Glucose 58 L (70-105) mg/dl Lactic Acid (0.4-2.0) mmol/L Calcium (8.5-10.1) mg/dL Magnesium (1.8-2.4) mg/dL Total Bilirubin (0.2-1.0) mg/dL AST (15-37) U/L ALT (14-59) U/L Alkaline Phosphatase (46-116) U/L Ammonia (11-32) umol/L Troponin I (0.000-0.056) ng/mL B-Natriuretic Peptide (0-100) pg/ml Total Protein (6.4-8.2) g/dL Albumin (3.4-5.0) g/dL Globulin Albumin/Globulin Ratio Amylase (25-115) U/L Lipase (73-393) U/L Ethyl Alcohol (0) mg/dL 02/14/20 02/14/20 02/14/20 Range/Units 14:53 14:53 14:53 WBC (5.0-10.0) 10^3/uL RBC (4.2-5.4) 10^6/uL Hgb (12.0-16.0) g/dL Hct (37.0-47.0) % MCV (80-100) fL MCH (27.0-34.0) pg MCHC (33.0-35.0) g/dL Plt Count (150-450) 10^3/uL Neut % (Auto) (42.2-75.2) % Lymph % (Auto) (20.5-50.1) % [place] % (Auto) (2-8) % Eos % (Auto) (1.0-3.0) % Baso % (Auto) (0.0-1.0) % PT (9.0-12.0) SEC INR (0.9-1.2) APTT (22.0-34.0) SEC Sodium 136 (136-145) mmol/L Potassium 5.3 H (3.5-5.1) mmol/L Chloride 92 L (98-107) mmol/L Carbon Dioxide 27 (21-32) mmol/L Anion Gap 22.3 H (7-13) mEq/L BUN 47 H (7-18) mg/dL Creatinine 11.38 H* (0.55-1.02) mg/dL Est Cr Clr Drug Dosing TNP Estimated GFR (MDRD) 4 BUN/Creatinine Ratio 4.1 (No establ ref range) Glucose 60 L (74-99) mg/dL POC Glucose (70-105) mg/dl Lactic Acid 1.6 (0.4-2.0) mmol/L Calcium 7.6 L (8.5-10.1) mg/dL Magnesium 2.2 (1.8-2.4) mg/dL Total Bilirubin 7.7 H (0.2-1.0) mg/dL AST 56 H (15-37) U/L ALT 46 (14-59) U/L Alkaline Phosphatase 174 H (46-116) U/L Ammonia 112 H (11-32) umol/L Troponin I 0.057 H* (0.000-0.056) ng/mL B-Natriuretic Peptide 4990 H (0-100) pg/ml Total Protein 7.5 (6.4-8.2) g/dL Albumin 2.4 L (3.4-5.0) g/dL Globulin 5.1 Albumin/Globulin Ratio 0.47 Amylase 15 L (25-115) U/L Lipase 58 L (73-393) U/L Ethyl Alcohol < 3 (0) mg/dL 02/14/20 Range/Units 15:31 WBC (5.0-10.0) 10^3/uL RBC (4.2-5.4) 10^6/uL Hgb (12.0-16.0) g/dL Hct (37.0-47.0) % MCV (80-100) fL MCH (27.0-34.0) pg MCHC (33.0-35.0) g/dL Plt Count (150-450) 10^3/uL Neut % (Auto) (42.2-75.2) % Lymph % (Auto) (20.5-50.1) % [place] % (Auto) (2-8) % Eos % (Auto) (1.0-3.0) % Baso % (Auto) (0.0-1.0) % PT (9.0-12.0) SEC INR (0.9-1.2) APTT (22.0-34.0) SEC Sodium (136-145) mmol/L Potassium (3.5-5.1) mmol/L Chloride (98-107) mmol/L Carbon Dioxide (21-32) mmol/L Anion Gap (7-13) mEq/L BUN (7-18) mg/dL Creatinine (0.55-1.02) mg/dL Est Cr Clr Drug Dosing Estimated GFR (MDRD) BUN/Creatinine Ratio (No establ ref range) Glucose (74-99) mg/dL POC Glucose 142 H (70-105) mg/dl Lactic Acid (0.4-2.0) mmol/L Calcium (8.5-10.1) mg/dL Magnesium (1.8-2.4) mg/dL Total Bilirubin (0.2-1.0) mg/dL AST (15-37) U/L ALT (14-59) U/L Alkaline Phosphatase (46-116) U/L Ammonia (11-32) umol/L Troponin I (0.000-0.056) ng/mL B-Natriuretic Peptide (0-100) pg/ml Total Protein (6.4-8.2) g/dL Albumin (3.4-5.0) g/dL Globulin Albumin/Globulin Ratio Amylase (25-115) U/L Lipase (73-393) U/L Ethyl Alcohol (0) mg/dL Meds: Medications Generic Name Dose Route Start Last Admin Trade Name Freq PRN Reason Stop Dose Admin Ceftriaxone Sodium 2 gm/ 100 mls @ 200 mls/hr 02/14/20 16:03 Sodium Chloride IV 02/14/20 16:32 ONETIME ONE Sodium Chloride 10 ml 02/14/20 14:39 02/14/20 15:00 Saline Flush FLUSH 10 ml ASDIRECTED PRN Administration Keep Vein Open Discontinued Medications Generic Name Dose Route Start Last Admin Trade Name Freq PRN Reason Stop Dose Admin Dextrose/Water 50 ml 02/14/20 14:53 02/14/20 15:00 Dextrose 50% In Water IVPUSH 02/14/20 14:54 50 ml ONETIME ONE Administration Lactulose 30 gm 02/14/20 15:24 02/14/20 15:31 Cephulac PO 02/14/20 15:25 30 gm ONETIME ONE Administration - Radiology Interpretation Free Text/Narrative:: [facility] Final Radiology Report Call: [phone] assistance Online chat: [email or web address] Name: ARELIS REDD Age: 44Years F Date: 02/14/2020 SSN: -- : [id number] Study: XR CHEST 1 VIEW FRONTAL Requesting Physician: GEOFF MCDONALD Images: 1 Addl Studies: Provided Clinical History: Contrast: Contrast Medium: Contrast Amount: Contrast Method: CONFIDENTIALITY STATEMENT This report is intended only for use by the referring physician, and only in accordance with law. If you received this in error, call [phone]. Page 1 of 1 PROCEDURE INFORMATION: Exam: XR Chest, 1 View Exam date and time: 02/14/2020 3:15 PM Age: 44 years old Clinical indication: Shortness of breath and other: Rales, altered mentation; Patient HX: HX esrd on dialysis (noncompliant), HX chf and cirrhosis w/acites TECHNIQUE: Imaging protocol: XR of the chest Views: 1 view. COMPARISON: CR Chest 2V 09/01/2019 8:12 PM FINDINGS: Lungs: Low lung volumes. No consolidation. Pleural space: Unremarkable. No pleural effusion. No pneumothorax. Heart/Mediastinum: Unremarkable. No cardiomegaly. Vasculature: A vascular stent is projected over the right axillary region. Bones/joints: There has been partial resection of the distal right clavicle. IMPRESSION: No acute findings. Thank you for allowing us to participate in the care of your patient. 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 steatohepatitis), Hypoglycemia Ascites Qualifiers: Ascites type: other type Qualified Code(s): R18.8 - Other ascites - Discharge Information *PRESCRIPTION DRUG MONITORING PROGRAM REVIEWED*: No *COPY OF PRESCRIPTION DRUG MONITORING REPORT IN PATIENT MARIBEL: No Forms: ED Department Discharge, Interfacility Transfer EMTALA Sepsis Event Note - Focused Exam Vital Signs: Vital Signs Temp Pulse Resp BP Pulse Ox 02/14/20 14:43 97.7 F 93 20 185/77 H 98 Date Exam was Performed: 02/14/20 Time Exam was Performed: 16:05 - My Orders Last 24 Hours: My Active Orders 02/14/20 14:37 Chest 1V Frontal [CR] Stat Peripheral IV Insertion Adult [OM.PC] Stat 02/14/20 14:39 Blood Glucose Check, Bedside [RC] ONETIME EKG 12 Lead [EKG Documentation Completion] [RC] STAT DRUG SCREEN URINE BIORAD [URCHEM] Stat UA RFX JORGE AND CULT IF INDIC [URIN] Stat Sodium Chloride 0.9% [Saline Flush] 10 ml FLUSH ASDIRECTED PRN 02/14/20 14:40 Peripheral IV Care [RC] . DIRECTED 02/14/20 14:53 AMYLASE [CHEM] Stat B-TYPE NATRIURETIC PEPTIDE,BNP [CHEM] Stat COMPREHENSIVE METABOLIC PN,CMP [CHEM] Stat ETHANOL BLOOD MEDICAL [CHEM] Stat LIPASE [CHEM] Stat MAGNESIUM [CHEM] Stat PHOSPHORUS [CHEM] Stat TROPONIN I [CHEM] Stat 02/14/20 15:03 Blood Glucose Check, Bedside [RC] ONETIME 02/14/20 16:03 cefTRIAXone [Rocephin] 2 gm Sodium Chloride 0.9% [Normal Saline] 100 ml IV ONETIME - Assessment/Plan Last 24 Hours: My Active Orders 02/14/20 14:37 Chest 1V Frontal [CR] Stat Peripheral IV Insertion Adult [OM.PC] Stat 02/14/20 14:39 Blood Glucose Check, Bedside [RC] ONETIME EKG 12 Lead [EKG Documentation Completion] [RC] STAT DRUG SCREEN URINE BIORAD [URCHEM] Stat UA RFX JORGE AND CULT IF INDIC [URIN] Stat Sodium Chloride 0.9% [Saline Flush] 10 ml FLUSH ASDIRECTED PRN 02/14/20 14:40 Peripheral IV Care [RC] . DIRECTED 02/14/20 14:53 AMYLASE [CHEM] Stat B-TYPE NATRIURETIC PEPTIDE,BNP [CHEM] Stat COMPREHENSIVE METABOLIC PN,CMP [CHEM] Stat ETHANOL BLOOD MEDICAL [CHEM] Stat LIPASE [CHEM] Stat MAGNESIUM [CHEM] Stat PHOSPHORUS [CHEM] Stat TROPONIN I [CHEM] Stat 02/14/20 15:03 Blood Glucose Check, Bedside [RC] ONETIME 02/14/20 16:03 cefTRIAXone [Rocephin] 2 gm Sodium Chloride 0.9% [Normal Saline] 100 ml IV ONETIME I have read and agree with the documentation that has been completed regarding this visit. By signing this record, I attest that the documentation was completed in my physical presence and is an accurate record of the encounter.
== END 2020-02-14 16:53 ==
LOC: DL.ED 14:31
DX: I13.2 Hypertensive heart and chronic kidney disease with heart failure and with stage 5 chronic kidney disease, or end stage renal disease (principal); N18.6 End stage renal disease; I50.9 Heart failure, unspecified; K75.81 Nonalcoholic steatohepatitis (NASH); K74.60 Unspecified cirrhosis of liver; K72.90 Hepatic failure, unspecified without coma; R18.8 Other ascites; E16.2 Hypoglycemia, unspecified; F17.210 Nicotine dependence, cigarettes, uncomplicated; Z90.49 Acquired absence of other specified parts of digestive tract; Z88.5 Allergy status to narcotic agent; Z79.899 Other long term (current) drug therapy
CPT/HCPCS: 36415; 71045; 80053; 80307; 82140; 82150; 82962; 83605; 83690; 83735; 83880; 84100; 84484; 85025; 85610; 85730; 93005; 96365; 96375; 99285; A9270; J0696; J7050; 93010; 99284

== ENCOUNTER 2020-04-19 12:31 | Emergency (ER) | payer MEDICARE, MEDICAID ==
--- NOTE | 2020-04-19 12:35 | EDM.PDOC ---
ED HPI GENERAL MEDICAL PROBLEM - General Chief Complaint: Diabetic Complaint Stated Complaint: AMBULANCE Time Seen by Provider: 04/19/20 12:34 Source of Information: Reports: EMS, Old Records, RN, RN Notes Reviewed History Limitations: Reports: Altered Mental Status - History of Present Illness INITIAL COMMENTS - FREE TEXT/NARRATIVE: Pt arrives to ER from home by [facility] with report that a family member called 911 due to pt having altered mental status, confusion, too weak to get up, and has not gone to dialysis for at least one week. EMS reports the pt was found in a in a house with a lot of little kids but no other adults to provide history. Pt arrives awake, looking around, but only groans and does not speak intelligibly. EMS found pt to have blood glucose of 82, and gave Dextrose 50% 1 amp IVP x1. Blood glucose on arrival 147. Pt has Hx of non-alcoholic cirrhosis with ascites , hepatic encephalopathy, DM, ESRD on hemodialysis with documented noncompliance. Onset: Unknown/Unsure Duration: Constant Location: Reports: Generalized Severity: Severe Improves with: Reports: None Worsens with: Reports: None - Related Data Allergies Allergy/AdvReac Type Severity Reaction Status Date / Time codeine Allergy Hives Verified 02/14/20 14:47 Home Meds: Home Meds Calcium Acetate [PhosLo] 4 cap PO ASDIRECTED 07/05/15 [History] Losartan Potassium [Cozaar] 100 mg PO DAILY 07/05/15 [History] Metoprolol Succinate [Toprol XL] 50 mg PO BID 07/05/15 [History] Acetaminophen [Tylenol] 650 mg PO ASDIRECTED PRN 08/29/18 [History] Past Medical History HEENT History: Reports: Cataract, Hard of Hearing Other HEENT History: 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 Cardiovascular History: Reports: Heart Failure, Hypertension Gastrointestinal History: Reports: Bowel Obstruction, Cholelithiasis, Cirrhosis , Jaundice Genitourinary History: Reports: Chronic Renal Insuffiency, Dialysis, Renal Disease, Other (See Below) Other Genitourinary History: 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 mental status, unable to speak ED EXAM GENERAL NO PERIP PULSE - Physical Exam Exam: See Below Exam Limited By: Altered Mental Status General Appearance: Alert (confused, responsive to tactile stimuli, does not consistently follow commands), Obtunded, Other (Chronically ill and unkept appearing) Eye Exam: Bilateral Eye: PERRL, Other (mild scleral icterus) Ears: Normal External Exam Nose: Normal Inspection, No Blood Throat/Mouth: Normal Lips, No Airway Compromise Head: Atraumatic, Normocephalic Neck: Normal Inspection, Non-Tender, Full Range of Motion Respiratory/Chest: No Respiratory Distress, No Accessory Muscle Use, Decreased Breath Sounds, Crackles, Rales. No: Rhonchi, Wheezing, Stridor Cardiovascular: Regular Rate, Rhythm, No Edema, Tachycardia GI/Abdominal: Soft, Pelvis Stable, Other (Protruberant abdomen with fluid wave consistent with ascites). No: Guarding, Rigid, Rebound (Female) Exam: Deferred Rectal (Female) Exam: Deferred Extremities: Pedal Edema (trace), Other (thin, cachetic arms and legs). No: Joint Swelling Skin Exam: Warm, Dry, Jaundice EKG INTERPRETATION EKG Date: 04/19/20 Time: 12:48 Rhythm: Other (Sinus tach) Rate (Beats/Min): 100 Page: Normal P-Wave: Present QRS: Normal ST-T: Normal QT: Normal Comparison: No Change Course - Vital Signs Last Recorded V/S: Last Vital Signs Temp 98.1 F 04/19/20 12:44 Pulse 108 H 04/19/20 12:44 Resp 16 04/19/20 12:44 BP 151/59 H 04/19/20 12:44 Pulse Ox 98 04/19/20 12:44 - Orders/Labs/Meds Orders: Active Orders 24 hr Category Date Time Status Blood Glucose Check, Bedside [RC] ONETIME Care 04/19/20 13:36 Active EKG 12 Lead [EKG Documentation Completion] [RC] STAT Care 04/19/20 12:40 Active Peripheral IV Care [RC] . DIRECTED Care 04/19/20 12:42 Active AMMONIA VENOUS [CHEM] Stat Lab 04/19/20 13:22 Received AMYLASE [CHEM] Stat Lab 04/19/20 13:22 Results B-TYPE NATRIURETIC PEPTIDE,BNP [CHEM] Stat Lab 04/19/20 13:22 Results COMPREHENSIVE METABOLIC PN,CMP [CHEM] Stat Lab 04/19/20 13:22 Results CULTURE BLOOD [BC] Stat Lab 04/19/20 13:03 Results CULTURE BLOOD [BC] Stat Lab 04/19/20 13:22 Results ETHANOL BLOOD MEDICAL [CHEM] Stat Lab 04/19/20 13:22 Results LACTIC ACID [CHEM] Stat Lab 04/19/20 13:22 Received LIPASE [CHEM] Stat Lab 04/19/20 13:22 Results MAGNESIUM [CHEM] Stat Lab 04/19/20 13:22 Results PHOSPHORUS [CHEM] Stat Lab 04/19/20 13:22 Results Sodium Chloride 0.9% [Saline Flush] Med 04/19/20 12:41 Active 10 ml FLUSH ASDIRECTED PRN Blood Culture x2 Reflex Set [OM.PC] Stat Oth 04/19/20 12:41 Ordered Peripheral IV Insertion Adult [OM.PC] Stat Oth 04/19/20 12:40 Ordered Medication Orders Sodium Chloride (Saline Flush) 10 ml FLUSH ASDIRECTED PRN PRN Reason: Keep Vein Open Last Admin: 04/19/20 12:43 Dose: 10 ml Labs: Laboratory Tests 04/19/20 04/19/20 04/19/20 Range/Units 13:22 13:22 13:22 WBC 3.9 L (5.0-10.0) 10^3/uL RBC 3.59 L (4.2-5.4) 10^6/uL Hgb 10.3 L D (12.0-16.0) g/dL Hct 32.5 L (37.0-47.0) % MCV 90.5 D (80-100) fL MCH 28.7 (27.0-34.0) pg MCHC 31.7 L (33.0-35.0) g/dL Plt Count 269 D (150-450) 10^3/uL Neut % (Auto) 84.0 H (42.2-75.2) % Lymph % (Auto) 11.3 L (20.5-50.1) % [place] % (Auto) 4.1 (2-8) % Eos % (Auto) 0.3 L (1.0-3.0) % Baso % (Auto) 0.3 (0.0-1.0) % PT 29.8 H D (9.0-12.0) SEC INR 3.2 H (0.9-1.2) APTT 39.4 H (22.0-34.0) SEC B-Natriuretic Peptide 1750 H (0-100) pg/ml Meds: Medications Generic Name Dose Route Start Last Admin Trade Name Freq PRN Reason Stop Dose Admin Sodium Chloride 10 ml 04/19/20 12:41 04/19/20 12:43 Saline Flush FLUSH 10 ml ASDIRECTED PRN Administration Keep Vein Open Discontinued Medications Generic Name Dose Route Start Last Admin Trade Name Freq PRN Reason Stop Dose Admin Dextrose/Water 50 ml 04/19/20 13:54 04/19/20 13:57 Dextrose 50% In Water IVPUSH 04/19/20 13:55 50 ml ONETIME ONE Administration - Re-Assessments/Exams Free Text/Narrative Re-Assessment/Exam: 04/19/20 14:07 CT scanner is down for the day. Lab's chemistry analyzer is also down. 04/19/20 14:11 [facility] is on divert and declines the pt. Pt accepted to [facility] as a direct admit by Dr. Lagos. Departure - Departure Time of Disposition: 14:08 Disposition: DC/Tfer to Acute Hospital 02 Condition: Critical Clinical Impression: ESRD on hemodialysis, Acute hepatic encephalopathy, Hypoglycemia due to type 2 diabetes mellitus, Noncompliance with renal dialysis Ascites Qualifiers: Ascites type: other type Qualified Code(s): R18.8 - Other ascites - Discharge Information *PRESCRIPTION DRUG MONITORING PROGRAM REVIEWED*: Not Applicable *COPY OF PRESCRIPTION DRUG MONITORING REPORT IN PATIENT MARIBEL: Not Applicable Forms: ED Department Discharge, Interfacility Transfer EMTALA Sepsis Event Note (ED) - Focused Exam Vital Signs: Vital Signs Temp Pulse Resp BP Pulse Ox 04/19/20 12:44 98.1 F 108 H 16 151/59 H 98 - My Orders Last 24 Hours: My Active Orders 04/19/20 12:40 EKG 12 Lead [EKG Documentation Completion] [RC] STAT Peripheral IV Insertion Adult [OM.] Stat 04/19/20 12:41 Sodium Chloride 0.9% [Saline Flush] 10 ml FLUSH ASDIRECTED PRN Blood Culture x2 Reflex Set [.] Stat 04/19/20 12:42 Peripheral IV Care [RC] . DIRECTED 04/19/20 13:03 CULTURE BLOOD [BC] Stat 04/19/20 13:22 AMMONIA VENOUS [CHEM] Stat AMYLASE [CHEM] Stat B-TYPE NATRIURETIC PEPTIDE,BNP [CHEM] Stat COMPREHENSIVE METABOLIC PN,CMP [CHEM] Stat CULTURE BLOOD [BC] Stat ETHANOL BLOOD MEDICAL [CHEM] Stat LACTIC ACID [CHEM] Stat LIPASE [CHEM] Stat MAGNESIUM [CHEM] Stat PHOSPHORUS [CHEM] Stat 04/19/20 13:36 Blood Glucose Check, Bedside [RC] ONETIME - Assessment/Plan Last 24 Hours: My Active Orders 04/19/20 12:40 EKG 12 Lead [EKG Documentation Completion] [RC] STAT Peripheral IV Insertion Adult [OM.] Stat 04/19/20 12:41 Sodium Chloride 0.9% [Saline Flush] 10 ml FLUSH ASDIRECTED PRN Blood Culture x2 Reflex Set [.] Stat 04/19/20 12:42 Peripheral IV Care [RC] . DIRECTED 04/19/20 13:03 CULTURE BLOOD [BC] Stat 04/19/20 13:22 AMMONIA VENOUS [CHEM] Stat AMYLASE [CHEM] Stat B-TYPE NATRIURETIC PEPTIDE,BNP [CHEM] Stat COMPREHENSIVE METABOLIC PN,CMP [CHEM] Stat CULTURE BLOOD [BC] Stat ETHANOL BLOOD MEDICAL [CHEM] Stat LACTIC ACID [CHEM] Stat LIPASE [CHEM] Stat MAGNESIUM [CHEM] Stat PHOSPHORUS [CHEM] Stat 04/19/20 13:36 Blood Glucose Check, Bedside [RC] ONETIME
[2020-04-19] MEDS ORDERED: Sodium Chloride 0.9% 10 ML Syringe FLUSH PRN (12:41)
[2020-04-19 13:01] VITALS: BP 151/59; PULSE 108
--- NOTE | 2020-04-19 13:31 | CR ---
EXAMINATION: Chest 1V Frontal SEX: Female AGE: 45 years CLINICAL HISTORY: 45-year-old female with altered mental status and rales. Suspect fluid overload. INTERPRETATION: 1. No acute new cardiopulmonary abnormality identified in the interval since comparison film 14 February 2020. 2. Patient rotated and some platelike atelectasis in the right base. 3. External diagnostic cardiac sonographer leads. Normal cardiac silhouette without pulmonary vascular congestion, cephalization of flow, alveolar edema or dependent effusion. 4. No new lung mass, hilar lymphadenopathy or focal lobar pneumonia. 5. No pneumothorax or pneumomediastinum. Midline tracheal bronchial airway unremarkable (no foreign bodies). No other atelectasis or lobar collapse.
[2020-04-19 13:53] LABS: PTT,PARTIAL THROMBOPLSTIN TIME 39.4 SEC (22.0-34.0)
[2020-04-19] MEDS ORDERED: 50% Dextrose in Water 50 ML Syringe IVPUSH ONE (13:54)
[2020-04-19 17:24] LABS: SODIUM,NA 133 mmol/L (136-145)
== END 2020-04-19 14:20 ==
LOC: DL.ED 12:31
DX: I13.2 Hypertensive heart and chronic kidney disease with heart failure and with stage 5 chronic kidney disease, or end stage renal disease (principal); E11.22 Type 2 diabetes mellitus with diabetic chronic kidney disease; N18.6 End stage renal disease; I50.9 Heart failure, unspecified; Z99.2 Dependence on renal dialysis; E11.649 Type 2 diabetes mellitus with hypoglycemia without coma; K72.00 Acute and subacute hepatic failure without coma; R18.8 Other ascites; R00.0 Tachycardia, unspecified; Z90.49 Acquired absence of other specified parts of digestive tract; Z88.5 Allergy status to narcotic agent; Z79.899 Other long term (current) drug therapy
CPT/HCPCS: 36415; 71045; 80053; 80307; 82140; 82150; 82962; 83605; 83690; 83735; 83880; 84100; 85025; 85610; 85730; 87040; 93005; 96374; 99285-25